=== PATIENT | male | born 1950 | race Caucasian/White ===

== ENCOUNTER → 2019-05-23 08:40 | Outpatient (CLI) | payer MEDICARE, BC, SELFPAY ==
--- NOTE | 2019-05-23 08:49 | XR_ITS ---
XR shoulder RT min 2V COMPARISON: None HISTORY: Right shoulder pain TECHNIQUE: 3 views right shoulder FINDINGS: The clavicle is intact and the AC joint appears normal. The humeral head and glenoid appear normal. There is a small subchondral cysts humeral head near the greater tuberosity. There are no soft tissue calcifications. IMPRESSION: Essentially unremarkable right shoulder
== END ==
PROVIDERS: PCP Family Medicine; Visit Provider Family Medicine
DX: M75.101 Unspecified rotator cuff tear or rupture of right shoulder, not specified as traumatic (principal)
CPT/HCPCS: 73030

== ENCOUNTER → 2019-06-03 16:40 | Outpatient (CLI) | payer MEDICARE, BC, SELFPAY ==
--- NOTE | 2019-06-03 16:43 | MR_ITS ---
MR shoulder RT wo con CLINICAL INDICATION: Right shoulder pain with limited range of motion ITS.REASON: ROTATOR CUFF SYNDROME OF RIGHT SHOULDER ORDERING PHYSICIAN: Umer Evans MD PATIENT AGE: 69 years Comparison: 05/23/2019 FINDINGS: There are hypertrophic changes of the acromioclavicular joint with fluid in the AC joint and a small amount fluid in. To the AC joint. There is full-thickness tear involving the mid and anterior aspect of the supraspinatus tendon. There are some intact fibers of the posterior aspect of the supraspinatus along the superior margin. There is some mild retraction of the musculotendinous fibers anteriorly. The infraspinatus tendon, subscapularis, and teres minor tendons are intact. Fluid is present within the shoulder joint was some localized accumulation posteriorly. The bicipital tendon is in place. Subarticular cystic changes are present involving the inferior aspect of the glenoid. No obvious labral tear. Subchondral cystic changes are present involving the humeral head at the greater tuberosity. There are osteoarthritic changes of the glenohumeral joint IMPRESSION: 1. Full-thickness tear involves the mid and anterior aspect of the supraspinatus tendon with mild retraction of the musculotendinous fibers. Partial tear involves the inferior and posterior aspect of the supraspinatus tendon with some intact fibers superiorly. 2. Acromioclavicular arthropathy with shoulder joint effusion and subarticular cystic changes of the inferior aspect of the glenoid and greater tuberosity with associated osteoarthritis.
== END ==
PROVIDERS: PCP Family Medicine; Visit Provider Family Medicine
DX: M75.101 Unspecified rotator cuff tear or rupture of right shoulder, not specified as traumatic (principal)
CPT/HCPCS: 73221

== ENCOUNTER 2022-11-21 13:00 | Outpatient (RCR) | payer MEDICARE, BC, SELFPAY ==
--- NOTE | 2022-11-06 09:44 | HMH.PTOPEV ---
PT Outpatient Evaluation Rehab PT Outpatient Evaluation Start: 11/06/22 09:32 Freq: Status: Active Protocol: Document 11/06/22 09:32 SANGEETHA (Rec: 11/06/22 09:44 SANGEETHA [id number]) E-signed By Bishnu Trimble, PT Outpatient Therapy Subjective History Subjective History Pt reports aucte exacerbation of left sided lumbar radiculopathy last week. Pt reports very little LBP, however, reports once severe posterior left hip/glut area pain has since improved, but is stil provocative this am. Pt reports some referred pain from left hip down posterior thigh. Chief Complaint Pain,Stiff,Paresthesia Symptom Type Ache,Dull Symptoms Relieved By Rest/Positioning Symptoms Aggravated By Sitting,Physical Activity Prior Functional Limitations None Current Functional Limitations Sitting Symptom Description Constant but Variable Level of pain today (0-10) 2 Pain scale - at its best (0-10) 1 Pain scale - at its worst (0-10) 6 Lumbopelvic Eval Posture Thoracic Spine Posture Standing Position Neutral Lumbar Spine Posture Standing Position Neutral Assistive device Assistive Devices None / NA Gait Observation General Gait Pattern Observation No Deviations/Normal Palapation tenderness left lumbar spinal tenderness Yes: 1/4 paraspinal tenderness Yes: 1-2/4 buttock tenderness Yes: 2-3/4 Accessory Movement L-spine Vertebrae Accessory Movements Left P/A [place] that Elicit Symptoms L3 left L4 left Range of Motion Lumbar Spine Active Flexion Range of 0-45 Motion (degrees) Lumbar Spine Active Extension Range of 0-15 Motion (degrees) Left Lumbar Spine Lateral Flexion Active 0-20 Range of Motion (degrees) Right Lumbar Spine Lateral Flexion 0-20 Active Range of Motion (degrees) Manual Muscle Test Left Knee Extension Strength Grade 5 Normal Knee Flexion Strength Grade 5 Normal Hip Flexion Strength Grade 4- Good- Hip External Rotation Strength Grade 4 Good Hip Internal Rotation Strength Grade 4- Good- Special Tests Hip Piriformis Test Negative Right,Positive Left Sciatic Nerve Tension Test Negative Right,Positive Left Reverse Sciatic Nerve Tension Test Negative Left,Negative Right Lumbar Long [place] Distraction Test/Manual Negative Traction Outpatient Therapy Assessment Impairments Problems/Impairmments Palpation Tenderness,Impaired
== END 2022-11-21 13:05 | disposition home or self-care (01) ==
LOC: PT 13:00
PROVIDERS: PCP Family Medicine; Visit Provider Family Medicine
DX: M54.32 Sciatica, left side (principal)
CPT/HCPCS: 97010; 97014; 97035; 97110; 97163; G0283

== ENCOUNTER → 2023-03-12 12:22 | Outpatient (CLI) | payer MEDICARE, BC, SELFPAY ==
[2023-03-12 13:41] LABS: Basophils % 0.4 % (0.1-2.0); Eosinophils # 0.1 K/mm3 (0.0-0.4); Eosinophils % 1.4 % (0.1-12.0); Hematocrit 49.5 % (42.0-52.0); Hemoglobin 16.3 g/dL (14.1-18.0); Lymphocytes # 6.6 K/mm3 (0.7-4.5); Lymphocytes % 93.6 % (10-50); Mean Corpuscular Volume 99.9 fl (80-94); Mean Platelet Volume 8.5 fl (7.4-10.4); Monocytes # 0.3 K/mm3 (0.1-1.0); Monocytes % 4.1 % (1.7-9.3); Platelet Count 203 K/mm3 (142-424); Red Blood Count 4.96 M/mm3 (4.60-6.20); Red Cell Distribution Width 14.2 % (11.5-17.5); White Blood Count 7.1 K/mm3 (4.8-10.8)
[2023-03-12 13:56] LABS: Alanine Aminotransferase 31 U/L (12-78); Albumin Level 4.2 g/dl (3.5-5.0); Albumin/Globulin Ratio 1.4 (1.1-1.8); Alkaline Phosphatase 62 U/L (38-126); Anion Gap 16.7 mEq/L (5-15); Aspartate Amino Transferase 40 U/L (17-59); Bilirubin,Total 0.8 mg/dl (0.2-1.3); Blood Urea Nitrogen 19 mg/dl (9-20); Calcium 8.9 mg/dl (8.4-10.2); Carbon Dioxide 25 mmol/L (22.0-30.0); Chloride 102 mmol/L (98-107); Chol/HDL Ratio 2.8 (1-3.5); Cholesterol 135 mg/dl (140-200); Estimated Glomerular Filt Rate 73 ml/min (>60); GFR (African American) 88 ML/MIN (>60); Globulin 2.9 g/dL (1.3-3.2); Glucose 86 mg/dl (74-100); HDL Cholesterol 49 mg/dl (40-60); Potassium 4.7 mmoL/L (3.5-5.1); Sodium 139 mmol/L (136-145); Total Protein,Serum 7.1 g/dl (6.3-8.2); Triglycerides 74 mg/dl (30-150); Uric Acid 3.5 mg/dl (3.5-8.5); VLDL Cholesterol 15 mg/dL (0-40)
[2023-03-12 13:59] LABS: Creatinine,Urine Random 147 mg/dL (Not Estab.)
[2023-03-12 14:07] LABS: Direct LDL Cholesterol 71.56 mg/dL (100-129)
[2023-03-12 14:19] LABS: Neutrophils % 0.5 % (37.0-80.0)
[2023-03-12 14:20] LABS: MANUAL DIFFERENTIAL MANUAL DIFFERENTIAL (MANUAL DIFF)
[2023-03-12 14:26] LABS: Prostate Specific Ag Screen 3.9 ng/ml (0.0-4.0)
[2023-03-12 14:36] LABS: Eosinophils % 1 % (0-3); Lymphocytes % 35 % (10-50); Monocytes % 6 % (2-9); Neutrophils % 58 % (42-76); Total Cells Counted 100
[2023-03-12 14:42] LABS: Platelet Estimate Normal; RBC Morphology Normal
== END ==
PROVIDERS: PCP Family Medicine; Visit Provider Family Medicine
DX: I25.10 Atherosclerotic heart disease of native coronary artery without angina pectoris (principal); I10 Essential (primary) hypertension; Z12.5 Encounter for screening for malignant neoplasm of prostate
CPT/HCPCS: 36415; 80053; 80061; 82043; 82570; 84550; 85007; 85025; G0103

== ENCOUNTER 2023-06-15 10:30 | Outpatient (RCR) | payer MEDICARE, BC, SELFPAY ==
--- NOTE | 2023-06-07 11:40 | HMH.RHREAS ---
Rehab Reassessment Rehab OP Re-assessment Start: 05/07/23 14:01 Freq: Status: Active Protocol: Document 06/07/23 11:36 PHONIDA (Rec: 06/07/23 11:40 PHORSHELDON [id number]) E-signed By Karthikeyan Kang, PT Rehab Re-assessment Subjective Subjective Pt reports no pain at this time in the L knee. He continues to ambulate well without an AD and no problems. If I go up or down a lot of steps, I get a little pain, but that's the only time. Objective Objective Notes AROM L knee ( in deg ): 0-131 MMT L LE: HIP FLEX 4+/5, HIP ABD 5/5, KNEE FLEX 5/5, KNEE EXT 4+/5 Gait: Minimal antalgic gait during stance phase of L LE without AD. Assessment Progress Assessment Progressing as Expected Assessment Notes Pt has shown exceptional improvement in L KNEE AROM and considerably increased L LE strength. Difficulty with stairs remains midly problematic, but is improving. He contiues to need skilled intervention to return to prior level of function. Patient goals met STG: all LTG: ROM goal Goals Not Met LTG: all except ROM goal Revised Goals none Plan Plan Continue per initial Frequency of Therapy 2 x/wk Duration of therapy 2-3 wks Time and Billing Re-Eval Time 14 Re-Eval Billing Units 1 PHYSICIAN CERTIFICATION: I certify the specified therapy services for Avel Macario are required, authorized, and reviewed every 30 days.
== END 2023-06-15 10:35 | disposition home or self-care (01) ==
LOC: PT 10:30
PROVIDERS: Visit Provider Orthopaedic Surgery
DX: M25.562 Pain in left knee (principal); Z96.652 Presence of left artificial knee joint
CPT/HCPCS: 97014; 97016; 97110; 97112; 97140; 97163; 97164; 97530; G0283

== ENCOUNTER 2024-05-07 13:01 | Outpatient (CLI) | payer MEDICARE, BC, SELFPAY ==
[2024-05-07 13:53] LABS: Alanine Aminotransferase 28 U/L (12-78); Albumin/Globulin Ratio 1.4 (1.1-1.8); Alkaline Phosphatase 51 U/L (38-126); Anion Gap 12.2 mEq/L (5-15); Aspartate Amino Transferase 31 U/L (17-59); Bilirubin,Total 0.8 mg/dl (0.2-1.3); Blood Urea Nitrogen 24 mg/dl (9-20); Calcium 9.3 mg/dl (8.4-10.2); Carbon Dioxide 26 mmol/L (22.0-30.0); Chloride 103 mmol/L (98-107); Chol/HDL Ratio 3.6 (1-3.5); Cholesterol 134 mg/dl (140-200); Estimated Glomerular Filt Rate 59 ml/min (>60); GFR (African American) 71 ML/MIN (>60); Globulin 2.9 g/dL (1.3-3.2); Glucose 98 mg/dl (74-100); HDL Cholesterol 37 mg/dl (40-60); Potassium 4.2 mmoL/L (3.5-5.1); Sodium 137 mmol/L (136-145); Total Protein,Serum 6.9 g/dl (6.3-8.2); Triglycerides 78 mg/dl (30-150); VLDL Cholesterol 16 mg/dL (0-40)
[2024-05-07 14:05] LABS: Direct LDL Cholesterol 72.86 mg/dL (100-129)
[2024-05-07 14:25] LABS: Prostate Specific Ag Screen 2.9 ng/ml (0.0-4.0)
[2024-05-07 14:31] LABS: Microalbumin/Creatinine Ratio 58.4
[2024-05-07 14:37] LABS: Creatinine,Urine Random 96 mg/dL (Not Estab.)
== END 2024-05-07 23:59 | disposition home or self-care (01) ==
LOC: LAB 13:03
PROVIDERS: PCP Family Medicine; Visit Provider Family Medicine
DX: I10 Essential (primary) hypertension (principal); Z12.5 Encounter for screening for malignant neoplasm of prostate; I25.10 Atherosclerotic heart disease of native coronary artery without angina pectoris
CPT/HCPCS: 36415; 80053; 80061; 82043; 82570; G0103

== ENCOUNTER 2024-05-27 15:08 | Outpatient (CLI) | payer MEDICARE, BC, SELFPAY ==
[2024-05-27 15:38] LABS: Basophils % 0.7 % (0.1-2.0); Eosinophils % 0.9 % (0.1-12.0); Hematocrit 48.9 % (42.0-52.0); Hemoglobin 16.2 g/dL (14.1-18.0); Lymphocytes # 4.6 K/mm3 (0.7-4.5); Lymphocytes % 95.7 % (10-50); Mean Corpuscular HGB Conc 33.1 g/dL (31.8-35.4); Mean Corpuscular Hemoglobin 33.1 pg (27.0-31.2); Mean Corpuscular Volume 99.9 fl (80-94); Mean Platelet Volume 7.9 fl (7.4-10.4); Monocytes # 0.1 K/mm3 (0.1-1.0); Monocytes % 2.1 % (1.7-9.3); Platelet Count 195 K/mm3 (142-424); Red Blood Count 4.89 M/mm3 (4.60-6.20); Red Cell Distribution Width 13.5 % (11.5-17.5); White Blood Count 4.8 K/mm3 (4.8-10.8)
[2024-05-27 15:42] LABS: Neutrophils % 0.6 % (37.0-80.0)
[2024-05-27 15:43] LABS: MANUAL DIFFERENTIAL MANUAL DIFFERENTIAL (MANUAL DIFF)
[2024-05-27 15:57] LABS: Lymphocytes % 18 % (10-50); Monocytes % 7 % (2-9); Neutrophils % 75 % (42-76); Platelet Estimate Normal; RBC Morphology Normal; Total Cells Counted 100
[2024-05-27 16:40] LABS: Alanine Aminotransferase 24 U/L (12-78); Albumin Level 3.9 g/dl (3.5-5.0); Alkaline Phosphatase 49 U/L (38-126); Anion Gap 10.3 mEq/L (5-15); Aspartate Amino Transferase 28 U/L (17-59); Bilirubin,Indirect 0.7 mg/dL (0.0-0.9); Bilirubin,Total 0.7 mg/dl (0.2-1.3); Bilirubin,Unconjugated 0.8 mg/dL (0.0-1.1); Blood Urea Nitrogen 18 mg/dl (9-20); Calcium 9.4 mg/dl (8.4-10.2); Carbon Dioxide 26 mmol/L (22.0-30.0); Chloride 106 mmol/L (98-107); Estimated Glomerular Filt Rate 65 ml/min (>60); GFR (African American) 79 ML/MIN (>60); Glucose 97 mg/dl (74-100); Potassium 4.3 mmoL/L (3.5-5.1); Sodium 138 mmol/L (136-145); Total Protein,Serum 6.9 g/dl (6.3-8.2)
[2024-05-27 16:55] LABS: Free T4 (Free Thyroxine) 1.38 ng/dl (0.78-2.19)
[2024-05-27 17:07] LABS: Thyroid Stimulating Hormone 1.77 uIU/mL (0.465-4.68)
== END 2024-05-27 23:59 | disposition home or self-care (01) ==
LOC: LAB 15:10
PROVIDERS: PCP Family Medicine; Visit Provider Internal Medicine
DX: I10 Essential (primary) hypertension (principal); I48.92 Unspecified atrial flutter; R94.31 Abnormal electrocardiogram [ECG] [EKG]; Z86.79 Personal history of other diseases of the circulatory system; I25.10 Atherosclerotic heart disease of native coronary artery without angina pectoris
CPT/HCPCS: 36415; 80048; 80076; 84439; 84443; 85007; 85025; 85027; 93270

== ENCOUNTER 2024-06-03 11:45 | Outpatient (CLI) | payer MEDICARE, BC, SELFPAY ==
--- NOTE | 2024-06-03 11:46 | NM_ITS ---
APPROVED REPORT Exam: Nuclear Stress Test Indication: Palpitations, HTN, High cholesterol, Family history, CAD, CABG Patient Location: Outpatient Stress Tech: Kelley Camarena NM Tech:Moriah Steiner, ARRT, RT (R)(N) Ht: 6 ft 3 in Wt: 218 lbs HR: 93 bpm BP: 132/81 mmHg BSA: 2.28 m2 TID: 0.85 BMI: 27.2 History: Palpitations, HTN, High cholesterol, Family history, CAD, CABG Procedure: Patient exercised on Panfilo protocol 6:30 minutes and sec, resting heart rate 93 bpm, resting blood pressure 132/81 mmHg, with exercise maximum heart rate achived was 170 bpm which is 117 % of the maximum predicted heart rate and blood pressure was 183/94 mmHg. Test was stopped due to SOB. Patient denied any complaint of chest pain. Patient has exercise capacity, achieved 7.0 METs of workload on treadmill, the blood pressure response to exercise was . Cardiac Stress and Resting SPECT Images: Cardiac Stress and Resting SPECT images were obtained using technetium 99m Myoview 32.0 mCi stress and 10.42 mCi at rest. Resting and stress imaging in supine and prone positions demonstrate a large sized, moderate, fixed perfusion defect in the inferior, lateral, and inferolateral LV pacheco. Gated imaging demonstrates normal global LV systolic function. There is mild hypokinesis of the inferior and lateral LV pacheco. LVEF is calculated at 59%. Conclusion: Large sized, moderate, fixed perfusion defect in the inferior, lateral, and inferolateral LV pacheco. No evidence of reversible ischemia. Gated imaging demonstrates normal global LV systolic function. There is mild hypokinesis of the inferior and lateral LV pacheco. LVEF is calculated at 59%. Electronically signed by : Genevieve Méndez MD 06/04/2024 00:12:16
--- NOTE | 2024-06-03 13:28 | CA_ITS ---
APPROVED REPORT EXAM: Comprehensive 2D, Doppler, and color-flow Echocardiogram Digital Art Director: Sophia Moss CRT Ht: 6 ft 3 in Wt: 219lbs BSA: 2.28 BP: 136/90 mmHg Indications: CAD,CABG,AFLUTTER,ABN EKG,HX SVT,HLD 2D Dimensions Left Atrium 3.98 cm M: 3.0 - 4.0 LA Volume 27.30 mL LVOT 2.16 cm (M/F) 1.5-2.5 LA Volume Index 11.97 mL/m2 (M/F) 16-34 M-Mode Dimensions RVDd 3.39 cm (0.9-2.6) LVDd 3.86 cm (3.5-5.7) Ao Diam 4.56 cm (2.0-3.7) LVDs 2.50 cm (3.5-5.7) IVSd 2.36 cm (0.6-1.1) PWd 0.68 cm (0.6-1.1) EF (Teich) 65.30% FS 35.20% EDV (Teich) 64.30 mL TAPSE 1.30 (<1.7) ESV (Teich) 22.30 mL LV Diastology E Decel Time 139 (160-240 msec) E/A Ratio 1.9 MED E' 6.5 (>= 7 cm/sec) MED A' 10.20 cm/s E'/MED E' Ratio 20.98 (<= 14) LAT E' 13.7 (>= 10 cm/sec) LAT A' 8.40 cm/s E/LAT E' Ratio 9.96 (<= 14) Aortic Valve AoV Peak Paco. 92.0 (50-130 cm/s) AO Peak GR. 3.40 mmHg Mitral Valve MV E Max Paco. 136.0 (40-130 cm/s) MV A Velocity 72.0 (40-130 cm/s) E/A Ratio 1.91 MV Decel. Time 139 (160-240 ms) Tricuspid Valve TR P. Velocity 202.00 cm/s RAP Estimate 10.00 mmHg RVSP 26.40 mmHg Left Ventricle The left ventricle is normal size. The left ventricular systolic function is normal. The left ventricular ejection fraction is within the normal range. There is increased LV wall thickness. Proximal septal thickening is noted. There is normal LV segmental wall motion. Diastolic function is indeterminate. LVEF is 60%. Right Ventricle The right ventricle is not well-visualized. Atria The left atrium size is normal. The right atrium is not well-visualized. The interatrial septum is not well-visualized. Aortic Valve The aortic valve opens well. There is no aortic valvular stenosis. No aortic regurgitation is present. Mitral Valve The mitral valve is normal in structure. No evidence of mitral valve stenosis. There is no mitral valve regurgitation noted. Tricuspid Valve The tricuspid valve leaflets are thin and pliable. Trace tricuspid regurgitation. There is insufficient TR jet to estimate RVSP. Pulmonic Valve The pulmonary valve is normal in structure. Trace pulmonic regurgitation. Great Vessels The aortic root is mildly dilated, measuring 4.3 cm in diameter. The IVC is not well-visualized. Pericardium There is no pericardial effusion. Other Information Study Quality: Technically Difficult Conclusion Technically difficult study due to poor acoustic windows. Normal LV systolic function. The RA and RV are not well-visualized. No significant valvular stenosis or regurgitation. Mildly dilated aortic root, measuring 4.3 cm in diameter. Electronically signed by : Genevieve Méndez MD 06/04/2024 00:02:14
--- NOTE | 2024-06-03 13:52 | CA_ITS ---
APPROVED REPORT Exam: Exercise Treadmill Technologist: Kelley Camarena Ht: 6 ft 3 in Wt: 219 lbs BSA: 2.28 m2 HR: 66 bpm BP: 132/81 mmHg Rhythm: Atrial Flutter Indications: CAD, History of CABG, Atrial Flutter, History of SVT Medical History Medications: Aspirin,,,,, Metoprolol,,,,, Fish Oil,,,,, TAMSULOSIN,,,,, Naproxen,,,,, Nitroglycerin,,,,, RoSUVASTATIN,,,,, Co Q10,,,,, Multivitamin,,,,, Lisinopril-HCTZ,,,,, Stress Test Details Test: Panfilo HR Resting HR: 93 bpm Max Heart Rate (APMHR): 145 bpm Max HR Achieved: 170 bpm Target HR (85% APMHR): 123 bpm % of APMHR: 117 Recovery HR: 95 bpm HR response to stress: Normal HR response to stress BP Resting BP: 132.0/81.0 mmHg Max BP: 183.0/94.0 mmHg Recovery BP: 124.0/86.0 mmHg BP response to stress: Normal blood pressure response to stress. ECG Resting ECG: Atrial flutter Stress EC mm horizontal ST depression Recovery ECG: Return to baseline within 3 minutes of recovery Clinical Exercise duration: 06:30 min Highest Stage Achieved: Exercise capacity: 7.0 METs Overall Exercise Capacity for Age: Average Stress ECG Conclusion The patient was able to exercise for a total of 6 minutes, 30 seconds. He achieved a total of 7.0 METS. He has average exercise capacity compared to age and sex matched peers. He has normal HR and BP response to exercise. Symptoms: Dyspnea Arrhythmias/Ectopy: Atrial flutter ST-T Changes: [address] depression. Conclusion: The patient is in atrial flutter at baseline. Abnormal EKG response to exercise due to ST depression. Myoview images reported separately. Test Summary REST . . . . . . . Sitting REST 06:51 0.0 0.0 93 . 132/ 81 . . Stage 1 01:00 10.0 1.7 118 . . . . Stage 1 02:00 10.0 1.7 128 . . . . Stage 1 03:00 10.0 1.7 128 . 140/ 78 . . Stage 2 01:00 12.0 2.5 128 . . . . Stage 2 02:00 12.0 2.5 142 . . . . Stage 2 . . . . . . . Myoview Injected Stage 2 03:00 12.0 2.5 160 . 160/ 84 . . Stage 3 00:30 14.0 3.4 170 . . . Stop exercise at 06:30 RECOVERY 01:00 0.0 0.0 146 . 170/ 88 . . RECOVERY 02:00 0.0 0.0 130 . 170/ 88 . . RECOVERY 03:00 0.0 0.0 93 . 183/ 94 . . RECOVERY 04:00 0.0 0.0 100 . 183/ 94 . . RECOVERY 05:00 0.0 0.0 93 . 183/ 94 . . RECOVERY 06:00 0.0 0.0 88 . 166/ 97 . . RECOVERY 07:00 0.0 0.0 99 . 166/ 97 . . RECOVERY 08:00 0.0 0.0 66 . 166/ 97 . . RECOVERY 09:00 0.0 0.0 97 . 124/ 86 . . Electronically signed by : Genevieve Méndez MD 06/04/2024 00:10:04
== END 2024-06-03 23:59 | disposition home or self-care (01) ==
LOC: RAD 11:46
PROVIDERS: PCP Family Medicine; Visit Provider Internal Medicine
DX: R94.31 Abnormal electrocardiogram [ECG] [EKG] (principal); I48.92 Unspecified atrial flutter; I11.9 Hypertensive heart disease without heart failure; I25.10 Atherosclerotic heart disease of native coronary artery without angina pectoris; Z86.79 Personal history of other diseases of the circulatory system
CPT/HCPCS: 78452; 93017; 93018; 93306; A9502

== ENCOUNTER 2024-06-04 11:15 | Outpatient (CLI) | payer MEDICARE, BC, SELFPAY ==
[2024-06-06 11:22] LABS: Peripheral Smear Review Scanned Result
== END 2024-06-04 23:59 | disposition home or self-care (01) ==
LOC: LAB 11:19
PROVIDERS: PCP Family Medicine; Visit Provider Family Medicine
DX: D72.820 Lymphocytosis (symptomatic) (principal)
CPT/HCPCS: 36415

== ENCOUNTER 2024-07-02 11:29 | Day surgery (SDC) | payer MEDICARE, BC, SELFPAY ==
[2024-06-30 12:34] VITALS: BMI 26.7
--- NOTE | 2024-07-02 | ECG_ITS ---
APPROVED REPORT Exam: Resting ECG HR:64 bpm ECG Measurements Heart Rate 64 AXES TN 241 P 49 QRSd 103 QRS -12 QT 413 T 42 QTc 423 Conclusion SINUS RHYTHM WITH FIRST DEGREE AV BLOCK WITH OCCASIONAL SUPRAVENTRICULAR PREMATURE COMPLEXES INFERIOR MYOCARDIAL INFARCTION , PROBABLY OLD [40+ ms Q WAVE AND/OR ST/T ABNORMALITY IN II/aVF] ABNORMAL ECG INTERPRETATION BASED ON A DEFAULT AGE OF 39 YEARS UNCONFIRMED REPORT Electronically signed by : Umer Kowalski MD 07/02/2024 17:15:14
--- NOTE | 2024-07-02 11:40 | CA_ITS ---
APPROVED REPORT EXAM: Comprehensive 2D, Doppler, and color-flow Echocardiogram Tawer: Prisca OrdazmermanLIZZETTE Ht: 6 ft 3 in Wt: 217lbs BSA: 2.27 BP: 108/79 mmHg Indications: A FLUTTER,CARDIOVERSION,CAD,CABG,HTN,HLD Procedure After obtaining informed consent, patient underwent transesophageal echo in the [facility]. Type of Sedation : MAC Sedation was administered by Santos IvyR.N.AMely Sedation start time: 1:00 PM Case end Time: 1:20 PM Transesophageal probe was inserted and advanced into esophagus without difficulty by Dr. Luis Enrique Méndez. The UNA was performed without complications. Synchronized Cardioversion acheived with 150 Joules after 1 attempt(s). Rhythm following Synchronized Cardioversion: Sinus Bradycardia Throughout the procedure, the blood pressure, pulse oximetry, cardiac rhythm, and rate were monitored. The patient tolerated the procedure without adverse effects. Recovery from conscious sedation was uneventful and vital signs were stable. Left Ventricle The left ventricle is normal size. The left ventricular systolic function is normal. The left ventricular ejection fraction is within the normal range. There is increased LV wall thickness. There is normal LV segmental wall motion. LVEF is 60%. Right Ventricle Right ventricle is moderately dilated. Right ventricle is mildly hypokinetic. Atria The left atrium size is normal. No thrombus is visualized in the left atrium or appendage. The right atrium size is normal. The interatrial septum is aneurysmal. Interatrial septum is intact without evidence of ASD or PFO. Aortic Valve The aortic valve is normal in structure. The aortic valve is trileaflet. There is no aortic valvular stenosis. No aortic regurgitation is present. Mitral Valve The mitral valve is normal in structure. No evidence of mitral valve stenosis. Trace mitral regurgitation. Tricuspid Valve The tricuspid valve leaflets are thin and pliable. Trace tricuspid regurgitation. There is insufficient TR jet to estimate RVSP. Pulmonic Valve The pulmonary valve is normal in structure. Trace pulmonic regurgitation. Great Vessels The aortic root is normal in size. The ascending aorta is normal in size. Pericardium There is no pericardial effusion. Other Information Study Quality: Fair Conclusion Normal LV systolic function. Moderate RV dilation with mild reduction in RV function. Aneurysmal interatrial septum. No evidence of interatrial shunt. No significant valvular stenosis or regurgitation. At baseline, the patient was in atrial flutter. He underwent DCCV with 1 shock of 150 J, after which she converted successfully to sinus bradycardia. Postop, he continued to be in sinus bradycardia. Therefore, his home beta-rosie dose was halved at discharge. He was also discharged on 7-day monitor to evaluate his HR, presence of bradycardia, and recurrence of atrial flutter after discharge. He was discharged from postop in stable condition with no symptoms. Electronically signed by : Genevieve Méndez MD 07/03/2024 11:44:19
[2024-07-02 11:58] VITALS: BP 106/68; PULSE 62; RESP 18; TEMP 36.1; O2SAT 98
--- NOTE | 2024-07-02 11:58 | ECG_ITS ---
APPROVED REPORT Exam: Resting ECG HR:63 bpm ECG Measurements Heart Rate 63 AXES QRSd 104 QRS 73 QT 429 T -12 QTc 437 Conclusion ATRIAL FLUTTER/TACHYCARDIA ABNORMAL QRS-T ANGLE [QRS-T AXIS DIFFERENCE > 60] ABNORMAL ECG UNCONFIRMED REPORT Electronically signed by : Umer Kowalski MD 07/02/2024 17:15:24
[2024-07-02 12:19] LABS: Basophils % 0.7 % (0.1-2.0); Eosinophils # 0.1 K/mm3 (0.0-0.4); Eosinophils % 0.8 % (0.1-12.0); Hematocrit 46.9 % (42.0-52.0); Hemoglobin 15.9 g/dL (14.1-18.0); Lymphocytes # 5.2 K/mm3 (0.7-4.5); Lymphocytes % 94.7 % (10-50); Mean Corpuscular Hemoglobin 34.1 pg (27.0-31.2); Mean Corpuscular Volume 100.3 fl (80-94); Mean Platelet Volume 8.4 fl (7.4-10.4); Monocytes # 0.2 K/mm3 (0.1-1.0); Monocytes % 3.6 % (1.7-9.3); Platelet Count 210 K/mm3 (142-424); Red Blood Count 4.68 M/mm3 (4.60-6.20); Red Cell Distribution Width 13.7 % (11.5-17.5); White Blood Count 5.5 K/mm3 (4.8-10.8)
[2024-07-02 12:20] LABS: Neutrophils % 0.2 % (37.0-80.0)
[2024-07-02 12:21] LABS: MANUAL DIFFERENTIAL MANUAL DIFFERENTIAL (MANUAL DIFF)
[2024-07-02] MEDS: LACTATED RINGERS 1000ML 1,000 ML 50 ML IV (12:21)
[2024-07-02 12:24] LABS: Chloride 109 mmol/L (98-107); Sodium 136 mmol/L (136-145)
[2024-07-02 12:25] LABS: Potassium 4.1 mmoL/L (3.5-5.1)
[2024-07-02 12:27] LABS: Blood Urea Nitrogen 18 mg/dl (9-20); Creatinine Clearance Estimated 73 mL/min (50-200); Estimated Glomerular Filt Rate 59 ml/min (>60); GFR (African American) 71 ML/MIN (>60)
[2024-07-02 12:28] LABS: Anion Gap 9.1 mEq/L (5-15); Calcium 8.7 mg/dl (8.4-10.2); Carbon Dioxide 22 mmol/L (22.0-30.0); Glucose 101 mg/dl (74-100)
[2024-07-02 12:33] LABS: INR 1.13 (0.9-1.1); Prothrombin Time 12.5 seconds (10.1-12.5)
--- NOTE | 2024-07-02 12:43 | P.PNANES_ITS ---
[facility] Disclaimer: The information contained in this section may have been updated after the patient was seen, as this information can be updated by other users. Medical History HLD (hyperlipidemia) Atrial flutter Abnormal ECG Hx of supraventricular tachycardia Surgical History History of hip replacement Hx of CABG History of knee replacement S/P CABG x 5 Family History Other Family history of heart disease Social History Smoking Status: Never smoker alcohol intake: never substance use type: denies use current occupational status: retired and other Travel in the last 8 weeks: None caffeine: No [facility] Anesthesia Checklist Patient Identification Patient Identification: Arm Band Structural Data Admitted From: Home Planned Operative Procedure/s: UNA/Cardioversion Consent for Planned Operative Procedure(s) Verified: Yes Verified Documents: Surgical Consent and History and Physical NPO Status Verified Time NPO: 00:00 Additional verifications Anesthesia Reactions: No Airway Assessment Mallampati Score:: Class II C-Spine Mobility Assessed: Yes TMJ Mobility Assessed: Yes Dentition: Good Dentition Neurological Assessment Level of Consciousness: Awake, Alert and Appropriate Anesthesia Plan Anesthesia Risk discussed: Yes Anesthesia Plan: Verified ASA Class: III Anesthesia Type: MAC
[2024-07-02 12:49] LABS: Lymphocytes % 24 % (10-50); Monocytes % 1 % (2-9); Neutrophils % 75 % (42-76); Platelet Estimate Normal; RBC Morphology Normal; Total Cells Counted 100
[2024-07-02 12:57] VITALS: O2SAT 100
[2024-07-02 13:15] VITALS: BP 82/50; PULSE 58; RESP 16; TEMP 36.4; O2SAT 93
--- NOTE | 2024-07-02 13:19 | ECG_ITS ---
APPROVED REPORT Exam: Resting ECG HR:48 bpm ECG Measurements Heart Rate 48 AXES DE 239 P 33 QRSd 108 QRS -7 QT 460 T 64 QTc 426 Conclusion SINUS BRADYCARDIA WITH SINUS ARRHYTHMIA WITH FIRST DEGREE AV BLOCK ABNORMAL ECG UNCONFIRMED REPORT Electronically signed by : Umer Kowalski MD 07/02/2024 17:15:17
[2024-07-02 13:25] VITALS: BP 94/43; PULSE 51; RESP 16; O2SAT 98
[2024-07-02 13:35] VITALS: BP 103/61; PULSE 61; RESP 16; O2SAT 98
[2024-07-02 13:45] VITALS: BP 110/64; PULSE 56; RESP 16; TEMP 36.6; O2SAT 98
--- NOTE | 2024-07-03 07:59 | P.PNANES_ITS ---
[facility] Disclaimer: The information contained in this section may have been updated after the patient was seen, as this information can be updated by other users. Medical History HLD (hyperlipidemia) Atrial flutter Abnormal ECG Hx of supraventricular tachycardia Surgical History History of hip replacement Hx of CABG History of knee replacement S/P CABG x 5 Family History Other Family history of heart disease Social History Smoking Status: Never smoker alcohol intake: never substance use type: denies use current occupational status: retired and other Travel in the last 8 weeks: None caffeine: No [facility] Anesthesia Checklist Patient Identification Patient Identification: Arm Band Structural Data Admitted From: Home Planned Operative Procedure/s: Excision Right Forearm Lesion Consent for Planned Operative Procedure(s) Verified: Yes Verified Documents: Surgical Consent and History and Physical NPO Status Verified Time NPO: 00:00 Additional verifications Anesthesia Reactions: No Airway Assessment Mallampati Score:: Class II C-Spine Mobility Assessed: Yes TMJ Mobility Assessed: Yes Dentition: Good Dentition Neurological Assessment Level of Consciousness: Awake, Alert and Appropriate Anesthesia Plan Anesthesia Risk discussed: Yes Anesthesia Plan: Verified ASA Class: II Anesthesia Type: General
[2024-07-03 08:00] VITALS: BP 122/70; PULSE 41; RESP 16; TEMP 36.5; O2SAT 96
--- NOTE | 2024-07-03 08:00 | EXP.ANES.I ---
[facility] Anesthesia Record Part I Anesthesia Record I Intake, IV Amount: 800 Hydration: Adequate Estimated blood loss (mL): 5 Urine output (mL): 0 Blood Products used (#): none Blood Pressure: 122/70 SaO2: 96 Pulse Rate: 41 Airway Patency: Patent Respiratory Rate: 16 Temperature: 97.7 F Patient is:: Drowsy and Stable Stable to PACU at:: 07:55
== END 2024-07-02 14:20 | disposition home or self-care (01) ==
PROVIDERS: PCP Family Medicine; Visit Provider Internal Medicine
DX: I48.92 Unspecified atrial flutter (principal); R94.31 Abnormal electrocardiogram [ECG] [EKG]; Z86.79 Personal history of other diseases of the circulatory system; E78.49 Other hyperlipidemia; Z95.1 Presence of aortocoronary bypass graft; I10 Essential (primary) hypertension; I25.10 Atherosclerotic heart disease of native coronary artery without angina pectoris
CPT/HCPCS: 80048; 85007; 85025; 85027; 85610; 92960; 93005; 93270; 93312; 93319; J7120

== ENCOUNTER 2024-11-16 04:45 | Observation (INO) | payer MEDICARE, BC, SELFPAY ==
[2024-11-16] VITALS (11 sets, daily range): BP systolic 96–151; BP diastolic 64–91; PULSE 41–68; RESP 10–20; TEMP 36.6–36.9; O2SAT 94–99; BMI 27.5
--- NOTE | 2024-11-16 04:43 | ECG_ITS ---
APPROVED REPORT Exam: Resting ECG HR:41 bpm ECG Measurements Heart Rate 41 AXES QRSd 104 QRS 60 QT 500 T -1 QTc 437 Conclusion SUPRAVENTRICULAR BRADYCARDIA LOW QRS VOLTAGE IN PRECORDIAL LEADS [QRS DEFLECTION < 1.0 mV IN CHEST LEADS] MINIMAL ST DEPRESSION [0.025+ mV ST DEPRESSION] ABNORMAL QRS-T ANGLE [QRS-T AXIS DIFFERENCE > 60] ABNORMAL ECG UNCONFIRMED REPORT Electronically signed by : BERNIE CHAPA, 11/17/2024 23:05:21
--- NOTE | 2024-11-16 04:53 | XR_ITS ---
PROCEDURE INFORMATION: Exam: XR Chest Exam date and time: 11/16/2024 5:16 AM Age: 74 years old Clinical indication: Pain; Dyspnea; Left-sided; Additional info: Cp, dyspnea TECHNIQUE: Imaging protocol: Radiologic exam of the chest. Views: 1 view. COMPARISON: FINDINGS: Lungs: Right basilar atelectasis. No focal infiltrates identified. Pleural spaces: Unremarkable. No pleural effusion. No pneumothorax. Heart/Mediastinum: Calcified mediastinal lymph nodes. Diaphragm: Elevation of the right hemidiaphragm. Bones/joints: Prior median sternotomy and coronary artery bypass grafting. IMPRESSION: Right diaphragmatic elevation and right-sided atelectasis. No acute process definitely identified.
--- NOTE | 2024-11-16 04:54 | HMH.EDGENADL ---
Discharge Plan Disposition Patient Disposition: Admitted Prescriptions Prescriptions: No Action multivitamin [Daily Multi-Vitamin] Tablet 1 tab PO DAILY tamsulosin 0.4 mg capsule 0.4 mg PO DAILY Patient Comments: TAKE 1 CAPSULE BY MOUTH EVERY DAY lisinopril-hydrochlorothiazide 10-12.5 mg tablet 1 tab PO DAILY Patient Comments: TAKE 1 TABLET BY MOUTH EVERY DAY rosuvastatin 40 mg tablet 40 mg PO HS Patient Comments: TAKE 1 TABLET BY MOUTH EVERY DAY AT BEDTIME Co Q-10 300 mg capsule 300 mg PO DAILY Xarelto 20 mg tablet 20 mg PO DAILY Qty: 90 3RF Rx Instructions: must administer with evening meal metoprolol succinate 50 mg tablet extended release 24 hr 25 mg PO DAILY Referrals Follow up/Referrals: Juan Manuel Cano MD [Primary Care Provider] - See instructions Clinical Impressions Clinical Impression: Symptomatic bradycardia, Atrial flutter, Chest pain Print Language Print Language: Latvian Discharge ED Provider: Wayne Noguera General Adult HPI General Chief complaint: Chest Pain Stated complaint: chest pain Time Seen by Provider: 11/16/24 04:51 Mode of Arrival: Ambulatory Source of Information: Patient Limitations: No Limitations Description of Symptoms (Recalled from ER Triage Doc. by RN): Pt states he has been having chest pain since last evening worse now Also c/o dizziness History of Present Illness HPI narrative: 74-year-old male with history of distant CABG in 2000, more recent history of a flutter in 05/28 status post cardioversion after anticoagulation and UNA in 06/28. He remains intermittently in a flutter and is scheduled for an ablation procedure at the [facility] on 11/19/2024. He presents tonight because he awoke with chest tightness, cold sweats, dizziness. He denies any nausea or vomiting. He took a nitro without change. He reports that he had some chest tightness before he went to bed but the symptoms he woke up with were very new and different from any he has had before. He reports his normal heart rate is between 60 and 70. He reports he is normally/intermittently in a flutter. Related Data Home Medications ?Medication ?Instructions ?Recorded ?Confirmed coenzyme Q10 300 mg capsule (Co 300 mg PO DAILY 05/27/24 08/06/24 Q-10) lisinopril 10 1 tab PO DAILY 05/27/24 08/06/24 mg-hydrochlorothiazide 12.5 mg tablet multivitamin (Daily Multi-Vitamin 1 tab PO DAILY 05/27/24 08/06/24 tablet) rosuvastatin 40 mg tablet 40 mg PO HS 05/27/24 08/06/24 tamsulosin 0.4 mg capsule 0.4 mg PO DAILY 05/27/24 08/06/24 metoprolol succinate 50 mg 25 mg PO DAILY 08/06/24 08/06/24 tablet,extended release 24 hr Previous Rx's ?Medication ?Instructions ?Recorded rivaroxaban 20 mg tablet (Xarelto) 20 mg PO DAILY #90 tabs 05/27/24 Allergies Allergy/AdvReac Type Severity Reaction Status Date / Time KEVIN SHARK Allergy Intermediate I-HIVES Uncoded 08/06/24 13:33 Shark Oil Allergy Intermediate I-HIVES Uncoded 08/06/24 13:33 [facility] Disclaimer: The information contained in this section may have been updated after the patient was seen, as this information can be updated by other users. Medical History HLD (hyperlipidemia) Atrial flutter Abnormal ECG Hx of supraventricular tachycardia Surgical History History of hip replacement Hx of CABG History of knee replacement S/P CABG x 5 Family History Other Family history of heart disease Social History Smoking Status: Never smoker alcohol intake: never substance use type: denies use current occupational status: retired and other Travel in the last 8 weeks: None caffeine: No Have you lived/traveled outside US in past 30 days?: No Contact w/someone who lives/traveled outside US past 30 days?: No Exposure to someone with infectious disease in past 14 days?: No Do you have a fever (greater than 100.4 F or 38 C)?: No Have you tested positive for COVID-19: No Exposed to someone with COVID-19 in past 14 days?: No Do you have a sore throat?: No Do you have a cough?: No Do you have any weakness?: No Do you have any diarrhea?: No Are you experiencing any unusual bleeding?: No Do you have any muscle aches/pain?: No Do you have any abdominal pain?: No Are you experiencing loss of taste or smell?: No Other Medical History Have you received the Pneumonia Vaccine: No ROS Obtained: Yes All systems reviewed & no additional complaints except as documented Physical Exam General General appearance: alert and anxious Head Head exam: atraumatic and normocephalic Eye Eye exam: Present normal appearance, PERRL and EOMI ENT ENT exam: Present normal oropharynx and normal external ear exam Neck Neck exam: Present normal inspection and full ROM Chest Chest inspection: Present normal inspection and symmetric chest wall rise; Absent tenderness Respiratory Respiratory exam: Present normal lung sounds bilaterally; Absent respiratory distress Cardiovascular Cardiovascular exam: Present bradycardia and irregular rhythm Abdominal Exam Abdominal exam: Present soft; Absent distention, tenderness or guarding Extremities Exam Extremities exam: Present normal inspection; Absent edema or joint swelling Back Exam Back exam: Present normal inspection; Absent tenderness Neurological Exam Neurological exam: Present alert and oriented X3; Absent motor sensory deficit Psychiatric Psychiatric exam: Present normal affect and normal mood Skin Skin exam: Present warm, dry and normal color Lymphatic Lymphatic Findings: no adenopathy Medical Decision Making Medical Records Medical records reviewed: Yes I reviewed the patient's medical records. Screening: Per USPSTF and CDC recommendations, given the prevalence of disease in our region, it is our hospital?s policy to screen for HIV and viral Hepatitis for all patients aged 18 and over and those with ongoing risk factors. Manuel Inquiry Pt receiving controlled substance: No Manuel was queried for this patient: No Vital Signs: 11/16/24 04:45 11/16/24 05:15 11/16/24 05:30 Temperature 98.4 F Temperature Source Oral Pulse Rate [Right Brachial] 41 L Respiratory Rate 20 14 13 Blood Pressure 96/69 L 100/64 L Blood Pressure [Right Arm] 130/79 Blood Pressure Mean 78 70 Blood Pressure Mean [Right Arm] 96 Blood Pressure Source [Right Arm] Automatic Cuff 02 Sat by Pulse Oximetry 96 97 96 Oxygen Delivery Method Room Air Nasal Cannula Room Air Room Air Lab Data Lab results reviewed: Yes I reviewed the patient's lab results. Lab Results 11/16/24 04:38: SARS-CoV-2 (PCR) Not detected, Influenza A Untype (PCR) Not detected, Influenza Type B (PCR) Not detected 11/16/24 04:49: WBC 6.9, RBC 4.17 L, Hgb 13.5 L, Hct 40.4 L, MCV 96.9 H, MCH 32.4 H, MCHC 33.4, RDW 14.3, Plt Count 193, MPV 10.0, Neut % (Auto) 48.2, Lymph % (Auto) 38.1, [place] % (Auto) 9.7 H, Eos % (Auto) 2.5, Baso % (Auto) 0.9, Neut # (Auto) 3.3, Lymph # (Auto) 2.6, [place] # (Auto) 0.7, Eos # (Auto) 0.2, Baso # (Auto) 0.1, Sodium 138, Potassium 3.1 L, Chloride 106, Carbon Dioxide 25, Anion Gap 10.1, BUN 29 H, Creatinine 1.30 H, Estimated Creat Clear 69, Estimated GFR 54 L, Est GFR ( Amer) 65, Glucose 89, Calcium 8.8, Magnesium 2.1, Total Bilirubin 0.2, AST 31, ALT 24, Alkaline Phosphatase 49, Troponin I < 0.01, Total Protein 6.4, Albumin 3.6, Globulin 2.8, Albumin/Globulin Ratio 1.3 11/16/24 04:49 11/16/24 04:49 Orders (Tests/Meds): ED MEDICATIONS Discontinued Medications Generic Name Dose Route Start Last Admin Trade Name Freq PRN Reason Stop Dose Admin Aspirin 324 mg 11/16/24 04:52 11/16/24 04:56 Aspirin 81mg Chewable Tablet PO 11/16/24 04:53 324 mg ONCE ONE Administration Potassium Chloride 40 meq 11/16/24 05:32 11/16/24 05:40 Potassium Chloride 20meq Tab PO 11/16/24 05:33 40 meq ONCE ONE Administration ORDERS Category Date Time Status CXR --portable [XR chest portable] Stat Exams 11/16/24 04:53 Completed CBC w/Auto Diff [Complete Blood Count Auto Diff] Stat Lab 11/16/24 04:49 Completed CMP [Comprehensive Metabolic Panel] Stat Lab 11/16/24 04:49 Completed HIV Combo Routine Lab 11/16/24 04:49 Received Hepatitis C Ab Qual. W/ RFX Routine Lab 11/16/24 04:49 Received MAG [Magnesium] Stat Lab 11/16/24 04:49 Completed Rapid PCR Covid and Flu A/B Stat Lab 11/16/24 04:38 Completed Troponin I Q3H Lab 11/16/24 04:49 Completed Troponin I Q3H Lab 11/16/24 08:00 Ordered ECG Data Tracing #1: I reviewed this ECG and interpreted as documented below: Atrial flutter with ventricular rate of 41 with variable block, normal QRS, no obvious ischemic changes. ECG initial impression date: 11/16/24 ECG initial impression time: 04:43 HEART Score History (anamnesis): Highly suspicious ECG: Non-specific disturbance Age: >65 years Risk factors: Atherosclerosis history Troponin: </= normal limit HEART Score: 7 Medical Decision Narrative: 74-year-old male with history of CABG, history of a flutter on Xarelto and metoprolol XR 25 mg, presents for chest tightness, cold sweats, dizziness upon wakening this morning shortly prior to arrival. He had some chest tightness when he went to bed.. History was obtained via interactive discussion with patient, chart review. On arrival, patient is afebrile, normotensive, bradycardic with rate between 30 and 60, and a flow, moving all extremities spontaneously. Full physical exam performed and significant for clear lungs bilaterally, no abdominal tenderness, Differential includes but is not limited to ACS, arrhythmia, electrolyte derangement. Patient was given aspirin 324 for symptomatic management and correction of underlying abnormalities. Workup initiated including CBC CMP mag chest x-ray EKG. EKG shows a flutter with narrow complex bradycardia with ventricular rate of 41. Rate is highly variable on environmental monitoring specialist On re-evaluation, patient remains normotensive and bradycardic. Reports improvement in chest tightness, no dizziness. Laboratory workup independently interpreted by me and significant for minimal hypokalemia at 3.1, repleted orally. Normal mag, initial troponin undetectably low. Imaging independently interpreted by me and significant for right hemidiaphragm elevation, no focal consolidation, no pneumothorax. See radiology read for full review of final results. Interactive discussion was had with our director internal audit Dr. Sanchez who recommended admission for observation, echo and possible cath. The etiology of patient's new symptoms today remain unclear. Interactive discussion was had with hospitalist for admission. Procedures Risk/Benefits of Procedure(s) Were Explained: Yes Critical Care Critical Care Time Critical Care Time: No
--- NOTE | 2024-11-16 04:55 | PC.NURSE ---
Pt in atrial flutter with bradycardic ventricular rate per continuous heart monitor
[2024-11-16] MEDS: ASPIRIN 81MG CHEWABLE TABLET 324 MG PO (04:56)
[2024-11-16 05:01] LABS: Basophils # 0.1 K/mm3 (0-0.2); Basophils % 0.9 % (0.1-2.0); Eosinophils # 0.2 K/mm3 (0.0-0.4); Eosinophils % 2.5 % (0.1-12.0); Hematocrit 40.4 % (42.0-52.0); Hemoglobin 13.5 g/dL (14.1-18.0); Lymphocytes # 2.6 K/mm3 (0.7-4.5); Lymphocytes % 38.1 % (10-50); Mean Corpuscular HGB Conc 33.4 g/dL (31.8-35.4); Mean Corpuscular Hemoglobin 32.4 pg (27.0-31.2); Mean Corpuscular Volume 96.9 fl (80-94); Monocytes # 0.7 K/mm3 (0.1-1.0); Monocytes % 9.7 % (1.7-9.3); Neutrophils # 3.3 K/mm3 (1.8-7.8); Neutrophils % 48.2 % (37.0-80.0); Platelet Count 193 K/mm3 (142-424); Red Blood Count 4.17 M/mm3 (4.60-6.20); Red Cell Distribution Width 14.3 % (11.5-17.5); White Blood Count 6.9 K/mm3 (4.8-10.8)
[2024-11-16 05:03] LABS: Coronavirus 19, PCR Not Detected (NotDetected); Influenza A, PCR Not Detected (NotDetected); Influenza B, PCR Not Detected (NotDetected)
[2024-11-16 05:07] LABS: Alanine Aminotransferase 24 U/L (12-78); Albumin Level 3.6 g/dl (3.5-5.0); Albumin/Globulin Ratio 1.3 (1.1-1.8); Alkaline Phosphatase 49 U/L (38-126); Anion Gap 10.1 mEq/L (5-15); Aspartate Amino Transferase 31 U/L (17-59); Bilirubin,Total 0.2 mg/dl (0.2-1.3); Blood Urea Nitrogen 29 mg/dl (9-20); Calcium 8.8 mg/dl (8.4-10.2); Carbon Dioxide 25 mmol/L (22.0-30.0); Chloride 106 mmol/L (98-107); Creatinine Clearance Estimated 69 mL/min (50-200); Estimated Glomerular Filt Rate 54 ml/min (>60); GFR (African American) 65 ML/MIN (>60); Globulin 2.8 g/dL (1.3-3.2); Glucose 89 mg/dl (74-100); Magnesium 2.1 mg/dl (1.6-2.3); Potassium 3.1 mmoL/L (3.5-5.1); Sodium 138 mmol/L (136-145); Total Protein,Serum 6.4 g/dl (6.3-8.2)
[2024-11-16 05:19] LABS: Troponin I < 0.01 ng/ml (0.00-0.034)
[2024-11-16] MEDS: POTASSIUM CHLORIDE 20MEQ TAB 40 MEQ PO (05:40)
--- NOTE | 2024-11-16 05:57 | PC.NURSE ---
Dr. Sanchez paged for consult in regard for pt
--- NOTE | 2024-11-16 06:10 | PC.NURSE ---
storehouse clerk notified of need for inpatient bed. Pt accepted by hospitalist for admission
[2024-11-16 06:36] LABS: Chol/HDL Ratio 4.1 (1-3.5); Cholesterol 124 mg/dl (140-200); HDL Cholesterol 30 mg/dl (40-60); Triglycerides 86 mg/dl (30-150); VLDL Cholesterol 17 mg/dL (0-40)
[2024-11-16 06:38] LABS: INR 1.35 (0.9-1.1); Prothrombin Time 14.7 seconds (10.1-12.5)
[2024-11-16 06:47] LABS: Direct LDL Cholesterol 70.74 mg/dL (100-129)
[2024-11-16 07:03] LABS: Hepatitis C Ab Qual. W/ RFX NEGATIVE (Negative)
--- NOTE | 2024-11-16 07:23 | PC.NURSE ---
Pt arrived to the floor at this time.
[2024-11-16 07:58] LABS: HIV Combo NEGATIVE (Negative)
--- NOTE | 2024-11-16 08:11 | PC.NURSE ---
pt will be changed to [facility] who is his pcp. spoke with Hospitalist.
[2024-11-16 09:58] LABS: Troponin I < 0.01 ng/ml (0.00-0.034)
--- NOTE | 2024-11-16 10:00 | HMH.PHAINT1 ---
Pharmacy Intervention Comments: MEDICATION RECONCILIATION COMPLETED ON PATIENT USING EXTERNAL FILL HISTORY FROM PHARMACY. -AI TENA, JENNIFERD
--- NOTE | 2024-11-16 10:12 | EXP.HP ---
History of Present Illness *Admission Date: 11/16/24 *Reason for visit:: Chest pain *History of present illness: Mr. Macario is a 74 year old patient of [facility] with a history of CAD and atrial flutter who presented to [facility] ER this morning complaining of chest tightness, dizziness and diaphoresis. He states he had some chest tightness last night prior to going to bed but woke up around 4 am and symptoms were worse. He has HTN, had a CABG in 2000 and has not had any ischemia issues since, and he was recently diagnosed with A. flutter. He has been followed by cardiology at [facility] and referred to electrophysiology and has an ablation scheduled for 11/19/24. He had an echo a few months ago and had a cardiac CT scan 2 days ago. [facility] Disclaimer: The information contained in this section may have been updated after the patient was seen, as this information can be updated by other users. Medical History (Updated 11/16/24 @ 10:24 by Juan Manuel Cano MD) Nephrolithiasis Labyrinthitis BPH (benign prostatic hyperplasia) Osteoarthritis Atrial flutter CAD (coronary artery disease) HLD (hyperlipidemia) Atrial flutter Abnormal ECG Hx of supraventricular tachycardia Surgical History History of hip replacement Hx of CABG History of knee replacement S/P CABG x 5 Family History Family history of heart disease Social History Smoking Status: Never smoker alcohol intake: never substance use type: denies use current occupational status: retired and other Travel in the last 8 weeks: None caffeine: No Have you lived/traveled outside US in past 30 days?: No Contact w/someone who lives/traveled outside US past 30 days?: No Exposure to someone with infectious disease in past 14 days?: No Do you have a fever (greater than 100.4 F or 38 C)?: No Have you tested positive for COVID-19: No Exposed to someone with COVID-19 in past 14 days?: No Do you have a sore throat?: No Do you have a cough?: No Do you have any weakness?: No Do you have any diarrhea?: No Are you experiencing any unusual bleeding?: No Do you have any muscle aches/pain?: No Do you have any abdominal pain?: No Are you experiencing loss of taste or smell?: No Other Medical History Have you received the Flu Vaccine for this season: Yes Have you received the Pneumonia Vaccine: No Review of Systems Constitutional Constitutional: Denies chills and Denies fever(s) ENT Ears, Nose, Mouth, and Throat: Reports dizziness *Cardiovascular Cardiovascular: Reports as per HPI *Respiratory Respiratory: Denies cough *Gastrointestinal Gastrointestinal: Denies abdominal pain and Denies belching *Genitourinary Genitourinary: Denies difficulty urinating *Musculoskeletal Musculoskeletal: Denies arthralgias *Neurologic Neurologic: Reports as per HPI, Reports dizziness and Denies localized weakness Meds Home Medications and Allergies Home Medications ?Medication ?Instructions ?Recorded ?Confirmed ?Type coenzyme Q10 300 mg capsule (Co 300 mg PO DAILY 05/27/24 11/16/24 History Q-10) lisinopril 10 1 tab PO DAILY 05/27/24 11/16/24 History mg-hydrochlorothiazide 12.5 mg tablet multivitamin (Daily Multi-Vitamin 1 tab PO DAILY 05/27/24 11/16/24 History tablet) rosuvastatin 40 mg tablet 40 mg PO HS 05/27/24 11/16/24 History tamsulosin 0.4 mg capsule 0.4 mg PO DAILY 05/27/24 11/16/24 History metoprolol succinate 25 mg 25 mg PO DAILY 11/16/24 11/16/24 History tablet,extended release 24 hr rivaroxaban 20 mg tablet (Xarelto) 20 mg PO QPMWITHMEAL 11/16/24 11/16/24 History New Prescriptions to Start Prescriptions: Allergies Allergy/AdvReac Type Severity Reaction Status Date / Time KEVIN SHARK Allergy Intermediate I-HIVES Uncoded 08/06/24 13:33 Shark Oil Allergy Intermediate I-HIVES Uncoded 08/06/24 13:33 Exam Data for Last 24 hours Vital signs and Labs for Last 24 Hours: Temp Pulse Resp BP Pulse Ox O2 Del Method 97.8 F 59 L 16 133/85 99 Room Air 11/16/24 07:54 11/16/24 07:54 11/16/24 07:54 11/16/24 07:54 11/16/24 07:54 11/16/24 09:00 Laboratory Results - last 24 hr 11/16/24 04:38: SARS-CoV-2 (PCR) Not detected, Influenza A Untype (PCR) Not detected, Influenza Type B (PCR) Not detected 11/16/24 04:49: WBC 6.9, RBC 4.17 L, Hgb 13.5 L, Hct 40.4 L, MCV 96.9 H, MCH 32.4 H, MCHC 33.4, RDW 14.3, Plt Count 193, MPV 10.0, Neut % (Auto) 48.2, Lymph % (Auto) 38.1, [place] % (Auto) 9.7 H, Eos % (Auto) 2.5, Baso % (Auto) 0.9, Neut # (Auto) 3.3, Lymph # (Auto) 2.6, [place] # (Auto) 0.7, Eos # (Auto) 0.2, Baso # (Auto) 0.1, PT 14.7 H, INR 1.35 H, Sodium 138, Potassium 3.1 L, Chloride 106, Carbon Dioxide 25, Anion Gap 10.1, BUN 29 H, Creatinine 1.30 H, Estimated Creat Clear 69, Estimated GFR 54 L, Est GFR ( Amer) 65, Glucose 89, Calcium 8.8, Magnesium 2.1, Total Bilirubin 0.2, AST 31, ALT 24, Alkaline Phosphatase 49, Troponin I < 0.01, Total Protein 6.4, Albumin 3.6, Globulin 2.8, Albumin/Globulin Ratio 1.3, Triglycerides 86, Cholesterol 124 L, LDL Cholesterol Direct 70.74 L, VLDL Cholesterol 17, HDL Cholesterol 30 L, Cholesterol/HDL Ratio 4.1 H, HCV Ab RISSA w/Rflx PCR Qn Negative, HIV Ag/Ab Combo Qual Negative 11/16/24 09:10: Troponin I < 0.01 I & O for Last 24 hours: Intake & Output 11/13/24 11/14/24 11/15/24 11/16/24 23:59 23:59 23:59 23:59 Output Total 0 / 0 Balance 0 / 0 Weight 220 lb Constitutional Constitutional: no acute distress *Routine HEENT Exam Head: Present normocephalic Eye: Present EOMI and PERRL ENT: Present mucous membranes moist *Routine Neck Exam Neck: Present supple; Absent lymphadenopathy *Routine Respiratory Exam Respiratory: Present CTA bilaterally *Routine Cardiovascular Exam Cardiovascular: Present RRR and bradycardia (HR 55 now) *Routine Abdominal Exam Abdominal: Present soft and normoactive bowel sounds; Absent tenderness *Routine Rectal Exam Rectal:: deferred *Routine Genitalia Exam Genitalia:: deferred *Routine Extremities Exam Extremities: Absent cyanosis, clubbing or edema *Routine Skin Exam Skin: Present warm; Absent rash *Routine Neurological Exam Neurological: Present alert and oriented X3 Assessment and Plan *Assessment and plan (1) Chest pain: Status: Acute Category: Medical Code(s): R07.9 - Chest pain, unspecified (2) Atrial flutter: Status: Acute Category: Medical Code(s): I48.92 - Unspecified atrial flutter (3) Symptomatic bradycardia: Status: Acute Category: Medical Code(s): R00.1 - Bradycardia, unspecified (4) Hypokalemia: Status: Acute Category: Medical Code(s): E87.6 - Hypokalemia (5) Hypertension: Status: Acute Qualifiers: Hypertension type: primary hypertension Qualified Code(s): I10 - Essential (primary) hypertension Category: Medical Code(s): I10 - Essential (primary) hypertension (6) CAD (coronary artery disease): Status: Acute Qualifiers: Coronary Disease-Associated Artery/Lesion type: bypass graft Category: Medical Code(s): I25.10 - Atherosclerotic heart disease of [place] coronary artery without angina pectoris (7) Hx of CABG: Status: Acute Category: Surgical Code(s): Z95.1 - Presence of aortocoronary bypass graft (8) HLD (hyperlipidemia): Status: Acute Qualifiers: Hyperlipidemia type: other hyperlipidemia Qualified Code(s): E78.49 - Other hyperlipidemia Category: Medical Code(s): E78.5 - Hyperlipidemia, unspecified Plan Patient admitted for further evaluation and management of his symptomatic bradycardia. He has actually been taking 50 mg of Metoprolol daily. Plan to hold it now. Potassium has been replaced. Will recheck labs tomorrow. Doubt he needs an Echo during this admission. Check serial cardiac enzymes.
--- NOTE | 2024-11-16 15:00 | PC.NURSE ---
Received report from Gary Purcell RN
[2024-11-16] MEDS: RIVAROXABAN 10MG TABLET 20 MG PO (17:18)
[2024-11-16] MEDS: POTASSIUM CHLORIDE 20MEQ TAB 20 MEQ PO (20:00)
[2024-11-16] MEDS: ATORVASTATIN 40MG TABLET 40 MG PO (20:00)
[2024-11-16] MEDS: MELATONIN 5MG TABLET 5 MG PO (22:46)
[2024-11-17] VITALS: BP 121/65; PULSE 60; PULSE 65; RESP 16; TEMP 36.6; O2SAT 97
[2024-11-17 04:00] VITALS: BP 101/64; PULSE 61; PULSE 80; RESP 14; TEMP 36.7; O2SAT 98; BMI 27.6
--- NOTE | 2024-11-17 06:24 | PC.NURSE ---
Pt. was admitted yesterday for symptomatic Bradycardia. Pt. alert and orientated x 4. Denies chest pain/tightness, dizziness overnight. Pt. in A-Flutter. rhythm. He states that he is scheduled for a cardiac ablation on Sun. at . Pt. states that he is feeling fine. No bradycardia overnight. Pt. slept well . Heart rates in the 50's-60's. Vss. Personal items and call cain in reach.
[2024-11-17 07:13] LABS: Basophils % 0.6 % (0.1-2.0); Eosinophils # 0.1 K/mm3 (0.0-0.4); Hemoglobin 13.6 g/dL (14.1-18.0); Lymphocytes # 1.2 K/mm3 (0.7-4.5); Lymphocytes % 21.7 % (10-50); Mean Corpuscular HGB Conc 33.2 g/dL (31.8-35.4); Mean Corpuscular Hemoglobin 31.7 pg (27.0-31.2); Mean Corpuscular Volume 95.6 fl (80-94); Monocytes # 0.5 K/mm3 (0.1-1.0); Monocytes % 8.6 % (1.7-9.3); Neutrophils # 3.6 K/mm3 (1.8-7.8); Neutrophils % 66.7 % (37.0-80.0); Platelet Count 177 K/mm3 (142-424); Red Blood Count 4.29 M/mm3 (4.60-6.20); Red Cell Distribution Width 14.4 % (11.5-17.5); White Blood Count 5.4 K/mm3 (4.8-10.8)
[2024-11-17 07:27] VITALS: BP 103/50; PULSE 68; RESP 18; TEMP 36.4; O2SAT 99
[2024-11-17 07:32] LABS: Anion Gap 9.2 mEq/L (5-15); Blood Urea Nitrogen 18 mg/dl (9-20); Calcium 8.3 mg/dl (8.4-10.2); Carbon Dioxide 22 mmol/L (22.0-30.0); Chloride 110 mmol/L (98-107); Creatinine Clearance Estimated 76 mL/min (50-200); Estimated Glomerular Filt Rate 59 ml/min (>60); GFR (African American) 71 ML/MIN (>60); Glucose 84 mg/dl (74-100); Magnesium 1.9 mg/dl (1.6-2.3); Potassium 4.2 mmoL/L (3.5-5.1); Sodium 137 mmol/L (136-145)
[2024-11-17 08:00] VITALS: PULSE 60
--- NOTE | 2024-11-17 08:15 | P.PN_ITS ---
Subjective *Date: 11/17/24 *Time: 08:15 Interval history: Patient feels well this morning, anxious to go home. Medical Exam Vital signs and Labs for Last 24 Hours: Vital Signs Temp Pulse Pulse Resp BP Pulse Ox O2 Del Method 11/17/24 08:07 Room Air 11/17/24 07:27 97.5 F L 68 18 103/50 L 99 Room Air 11/17/24 07:00 Room Air 11/17/24 05:00 Room Air 11/17/24 04:00 80 11/17/24 04:00 98.0 F 61 14 101/64 L 98 Room Air 11/17/24 03:00 Room Air 11/17/24 01:00 Room Air 11/17/24 00:00 60 11/17/24 00:00 97.9 F 65 16 121/65 97 Room Air 11/16/24 23:00 Room Air 11/16/24 21:00 Room Air 11/16/24 20:00 Room Air 11/16/24 20:00 60 11/16/24 20:00 98.2 F 68 16 122/70 98 Room Air 11/16/24 18:38 Room Air 11/16/24 17:00 Room Air 11/16/24 16:00 60 11/16/24 16:00 60 11/16/24 16:00 97.9 F 67 19 123/71 98 Room Air 11/16/24 15:00 Room Air 11/16/24 13:00 Room Air 11/16/24 12:00 45 L 11/16/24 12:00 98.3 F 11/16/24 11:00 Room Air 11/16/24 10:00 98 F 60 18 151/91 H 99 Room Air 11/16/24 09:00 Room Air Intake and Output 11/16/24 11/17/24 11/17/24 23:59 07:59 15:59 Intake Total 240 / 720 Output Total 0 / 0 0 / 0 Balance 240 / 720 0 / 0 Intake: Intake, Oral Amount 240 / 720 Output: Output, Urine Amount 0 / 0 0 / 0 Other: Number of Unmeasured Voids 1 1 Number of Bowel Movements 1 Weight 222 lb 11.2 oz Patient Weight 11/17/24 23:59 Weight 222 lb 11.2 oz Laboratory Results - last 24 hr 11/16/24 09:10: Troponin I < 0.01 11/17/24 06:36: WBC 5.4, RBC 4.29 L, Hgb 13.6 L, Hct 41.0 L, MCV 95.6 H, MCH 31.7 H, MCHC 33.2, RDW 14.4, Plt Count 177, MPV 10.0, Neut % (Auto) 66.7, Lymph % (Auto) 21.7, [place] % (Auto) 8.6, Eos % (Auto) 2.0, Baso % (Auto) 0.6, Neut # (Auto) 3.6, Lymph # (Auto) 1.2, [place] # (Auto) 0.5, Eos # (Auto) 0.1, Baso # (Auto) 0.0, Sodium 137, Potassium 4.2 D, Chloride 110 H, Carbon Dioxide 22, Anion Gap 9.2, BUN 18 D, Creatinine 1.20, Estimated Creat Clear 76, Estimated GFR 59, Est GFR ( Amer) 71, Glucose 84, Calcium 8.3 L, Magnesium 1.9 I & O for Labs for Last 24 Hours: Intake & Output 11/14/24 11/15/24 11/16/24 11/17/24 23:59 23:59 23:59 23:59 Intake Total 720 / 720 Output Total 0 / 0 0 / 0 Balance 720 / 720 0 / 0 Weight 220 lb 222 lb 11.2 oz Constitutional: Present no acute distress Comment:: HR has mainly been between 55 and 65 overnight. Respiratory: Present normal respiratory effort Cardiac: Present Reg Rate and Rhythm GI: Present normal bowel sounds; Absent tenderness Extremities: Present normal inspection and full ROM Skin: Present intact; Absent erythema Neuro: Present Grossly Intact and moves all extremities Assessment and Plan *Assessment and plan (1) Chest pain: Status: Acute Category: Medical Code(s): R07.9 - Chest pain, unspecified (2) Atrial flutter: Status: Acute Category: Medical Code(s): I48.92 - Unspecified atrial flutter (3) Symptomatic bradycardia: Status: Acute Category: Medical Code(s): R00.1 - Bradycardia, unspecified (4) Hypokalemia: Status: Acute Category: Medical Code(s): E87.6 - Hypokalemia (5) Hypertension: Status: Acute Qualifiers: Hypertension type: primary hypertension Qualified Code(s): I10 - Essential (primary) hypertension Category: Medical Code(s): I10 - Essential (primary) hypertension (6) CAD (coronary artery disease): Status: Acute Qualifiers: Coronary Disease-Associated Artery/Lesion type: bypass graft Category: Medical Code(s): I25.10 - Atherosclerotic heart disease of [place] coronary artery without angina pectoris (7) Hx of CABG: Status: Acute Category: Surgical Code(s): Z95.1 - Presence of aortocoronary bypass graft (8) HLD (hyperlipidemia): Status: Acute Qualifiers: Hyperlipidemia type: other hyperlipidemia Qualified Code(s): E78.49 - Other hyperlipidemia Category: Medical Code(s): E78.5 - Hyperlipidemia, unspecified Plan Cardiac enzymes normal, potassium normal. OK for discharge home today, keep appt. for cardiac ablation in 2 days, plan office f/u in 2 weeks.
--- NOTE | 2024-11-17 08:24 | HMH.PHAINT1 ---
Pharmacy Intervention Comments: COUNSELED ON NEW MEDICATION WELL DISCONTINUED MEDICATION. PATIENT VERBALIZED UNDERSTANDING.
[2024-11-17] MEDS: TAMSULOSIN 0.4MG CAPSULE 0.4 MG PO (09:07)
[2024-11-17] MEDS: POTASSIUM CHLORIDE 20MEQ TAB 20 MEQ PO (09:08)
--- NOTE | 2024-11-17 14:31 | EXP.DC.SUM ---
General Admission date:: 11/16/24 Discharge date: 11/17/24 HPI HPI HPI: Mr. Macario is a 74 year old patient of [facility] with a history of CAD and atrial flutter who presented to [facility] ER this morning complaining of chest tightness, dizziness and diaphoresis. He states he had some chest tightness last night prior to going to bed but woke up around 4 am and symptoms were worse. He has HTN, had a CABG in 2000 and has not had any ischemia issues since, and he was recently diagnosed with A. flutter. He has been followed by cardiology at [facility] and referred to electrophysiology and has an ablation scheduled for 11/19/24. He had an echo a few months ago and had a cardiac CT scan 2 days ago. Hospital Course Hospital Course Hospital Course: Patient was admitted with symptomatic bradycardia. He had been taking 50 mg of metoprolol daily. This was placed on hold. Potassium was replaced. The following morning 11/17/2024 patient was feeling fine and wanting to go home. He had no further chest discomfort or shortness of breath. Heart rate was in the 50s. Monitor showing atrial flutter. Cardiac enzymes were normal. Potassium was normal. Thus he was discharged home. He was to keep appointment for cardiac ablation in 2 days. Plan for follow-up with Dr. Cano in the office of [facility] in 2 weeks. Exam Data for Last 24 hours Vital signs and Labs for Last 24 Hours: Temp Pulse Resp BP Pulse Ox O2 Del Method 97.5 F L 60 18 103/50 L 99 Room Air 11/17/24 07:27 11/17/24 08:00 11/17/24 07:27 11/17/24 07:27 11/17/24 07:27 11/17/24 08:07 Laboratory Results - last 24 hr 11/17/24 06:36: WBC 5.4, RBC 4.29 L, Hgb 13.6 L, Hct 41.0 L, MCV 95.6 H, MCH 31.7 H, MCHC 33.2, RDW 14.4, Plt Count 177, MPV 10.0, Neut % (Auto) 66.7, Lymph % (Auto) 21.7, [place] % (Auto) 8.6, Eos % (Auto) 2.0, Baso % (Auto) 0.6, Neut # (Auto) 3.6, Lymph # (Auto) 1.2, [place] # (Auto) 0.5, Eos # (Auto) 0.1, Baso # (Auto) 0.0, Sodium 137, Potassium 4.2 D, Chloride 110 H, Carbon Dioxide 22, Anion Gap 9.2, BUN 18 D, Creatinine 1.20, Estimated Creat Clear 76, Estimated GFR 59, Est GFR ( Amer) 71, Glucose 84, Calcium 8.3 L, Magnesium 1.9 I & O for Last 24 hours: Intake & Output 11/15/24 11/16/24 11/17/24 11/18/24 11:59 11:59 11:59 11:59 Intake Total 1060 / 1060 Output Total 0 / 0 0 / 0 Balance 0 / 0 1060 / 1060 Weight 220 lb 222 lb 11.2 oz Narrative: Constitutional: Present no acute distress Comment:: HR has mainly been between 55 and 65 overnight. Respiratory: Present normal respiratory effort Cardiac: Present Reg Rate and Rhythm GI: Present normal bowel sounds; Absent tenderness Extremities: Present normal inspection and full ROM Skin: Present intact; Absent erythema Neuro: Present Grossly Intact and moves all extremities Results Data Completed and Pending Labs on day of discharge: Labs from last 24 hours 11/17/24 06:36 WBC 5.4 RBC 4.29 L Hgb 13.6 L Hct 41.0 L MCV 95.6 H MCH 31.7 H MCHC 33.2 RDW 14.4 Plt Count 177 MPV 10.0 Neut % (Auto) 66.7 Lymph % (Auto) 21.7 [place] % (Auto) 8.6 Eos % (Auto) 2.0 Baso % (Auto) 0.6 Neut # (Auto) 3.6 Lymph # (Auto) 1.2 [place] # (Auto) 0.5 Eos # (Auto) 0.1 Baso # (Auto) 0.0 Sodium 137 Potassium 4.2 D Chloride 110 H Carbon Dioxide 22 Anion Gap 9.2 BUN 18 D Creatinine 1.20 Estimated Creat Clear 76 Estimated GFR 59 Est GFR ( Amer) 71 Glucose 84 Calcium 8.3 L Magnesium 1.9 DS: Diagnosis Discharge Diagnosis (1) Chest pain: Status: Acute Code(s): R07.9 - Chest pain, unspecified (2) Atrial flutter: Status: Acute Code(s): I48.92 - Unspecified atrial flutter (3) Symptomatic bradycardia: Status: Acute Code(s): R00.1 - Bradycardia, unspecified (4) Hypokalemia: Status: Acute Code(s): E87.6 - Hypokalemia (5) Hypertension: Status: Acute Code(s): I10 - Essential (primary) hypertension Qualifiers: Hypertension type: primary hypertension Qualified Code(s): I10 - Essential (primary) hypertension (6) CAD (coronary artery disease): Status: Acute Code(s): I25.10 - Atherosclerotic heart disease of [place] coronary artery without angina pectoris Qualifiers: Coronary Disease-Associated Artery/Lesion type: bypass graft (7) Hx of CABG: Status: Acute Code(s): Z95.1 - Presence of aortocoronary bypass graft (8) HLD (hyperlipidemia): Status: Acute Code(s): E78.5 - Hyperlipidemia, unspecified Qualifiers: Hyperlipidemia type: other hyperlipidemia Qualified Code(s): E78.49 - Other hyperlipidemia Meds Home Medications and Allergies Home Medications ?Medication ?Instructions ?Recorded ?Confirmed ?Type coenzyme Q10 300 mg capsule (Co 300 mg PO DAILY 05/27/24 11/16/24 History Q-10) lisinopril 10 1 tab PO DAILY 05/27/24 11/16/24 History mg-hydrochlorothiazide 12.5 mg tablet multivitamin (Daily Multi-Vitamin 1 tab PO DAILY 05/27/24 11/16/24 History tablet) rosuvastatin 40 mg tablet 40 mg PO HS 05/27/24 11/16/24 History tamsulosin 0.4 mg capsule 0.4 mg PO DAILY 05/27/24 11/16/24 History rivaroxaban 20 mg tablet (Xarelto) 20 mg PO QPMWITHMEAL 11/16/24 11/16/24 History potassium chloride 10 mEq 10 meq PO DAILY #30 caps 11/17/24 Rx capsule,extended release New Prescriptions to Start Prescriptions: potassium chloride [place],Juan Manuel Allergies Allergy/AdvReac Type Severity Reaction Status Date / Time KEVIN SHARK Allergy Intermediate I-HIVES Uncoded 08/06/24 13:33 Shark Oil Allergy Intermediate I-HIVES Uncoded 08/06/24 13:33 Discharge Plan Disposition Patient Disposition: Home, Self-Care Condition: Fair Follow up Plan Follow up with: Juan Manuel Cano MD [Primary Care Provider] - 12/01/24 11:00 am Prescriptions/Medication Reconciliation: New potassium chloride 10 mEq capsule, extended release 10 meq PO DAILY Qty: 30 0RF Continued multivitamin [Daily Multi-Vitamin] Tablet 1 tab PO DAILY tamsulosin 0.4 mg capsule 0.4 mg PO DAILY Patient Comments: TAKE 1 CAPSULE BY MOUTH EVERY DAY lisinopril-hydrochlorothiazide 10-12.5 mg tablet 1 tab PO DAILY Patient Comments: TAKE 1 TABLET BY MOUTH EVERY DAY rosuvastatin 40 mg tablet 40 mg PO HS Patient Comments: TAKE 1 TABLET BY MOUTH EVERY DAY AT BEDTIME Co Q-10 300 mg capsule 300 mg PO DAILY Xarelto 20 mg tablet 20 mg PO QPMWITHMEAL Rx Instructions: must administer with evening meal Discontinued metoprolol succinate 25 mg tablet extended release 24 hr 25 mg PO DAILY Patient Comments: TAKE 1 TABLET BY MOUTH DAILY Problem Reconciliation Problems Reviewed?: Yes Patient Discharge Instructions ACTIVITY: Limited activity DIET: continue same diet Patient Instructions: DI for Bradycardia Print Language: Mohawk Providers Primary Care Provider: Juan Manuel Cano Admit Provider: Juan Manuel Cano Attending Provider: Juan Manuel Cano
--- NOTE | 2024-11-18 09:56 | SW/DCPLANNER ---
Spoke with patient on the phone. Patient stated that he is doing very well. Patient stated that he is aware of his upcoming appointment and that he was able to picker tender his medicine at [facility]. Patient stated that he doesnt have any concerns or questions at this time. Lilly Belcher
== END 2024-11-17 09:49 | disposition home or self-care (01) ==
LOC: ER 06:09 → 2ND 06:50
PROVIDERS: Nurse Practitioner Family; Admitting Provider Family Medicine; Emergency Provider Emergency Medicine; PCP Family Medicine; Visit Provider Family Medicine
DX: R00.1 Bradycardia, unspecified (principal); I48.92 Unspecified atrial flutter; I25.10 Atherosclerotic heart disease of native coronary artery without angina pectoris; I10 Essential (primary) hypertension; Z95.1 Presence of aortocoronary bypass graft; Z79.899 Other long term (current) drug therapy; Z79.01 Long term (current) use of anticoagulants
CPT/HCPCS: 36415; 71045; 80048; 80053; 80061; 83735; 84484; 85025; 85610; 86803; 87389; 87636; 93005; 99285; G0378

== ENCOUNTER 2025-01-31 09:53 | Inpatient (IN) | payer MEDICARE, BC, SELFPAY ==
[2025-01-31] VITALS (26 sets, daily range): BP systolic 81–138; BP diastolic 46–80; PULSE 45–67; RESP 10–25; TEMP 36.6–37; O2SAT 89–98; BMI 27.2; BMI 27.8
--- NOTE | 2025-01-31 09:56 | ECG_ITS ---
APPROVED REPORT Exam: Resting ECG HR:53 bpm ECG Measurements Heart Rate 53 AXES RI 186 P 3 QRSd 109 QRS 15 QT 434 T 128 QTc 416 Conclusion Acute lateral/inferior ischemia ST elevation [address] depressions and T wave inversions V2 and V3 as well as 1 and aVL Electronically signed by : SUZIE FULLER, 01/31/2025 12:30:41
--- NOTE | 2025-01-31 09:57 | XR_ITS ---
PROCEDURE INFORMATION: Exam: XR Chest Exam date and time: 01/31/2025 10:09 AM Age: 74 years old Clinical indication: Other: Chest pain; Additional info: Cp TECHNIQUE: Imaging protocol: Radiologic exam of the chest. Views: 1 view. Total images: 2 COMPARISON: CR XR CHEST PORTABLE 11/16/2024 5:16 AM FINDINGS: Tubes, catheters and devices: fur dressing supervisor overlies the heart on the left. Lungs: No focal pneumonia. Pleural spaces: Unremarkable. No pleural effusion. No pneumothorax. Heart/Mediastinum: Heart demonstrates mild diffuse enlargement. Diaphragm: There is nonspecific elevation of the right hemidiaphragm. Bones/joints: There is evidence of prior median sternotomy. IMPRESSION: 1. Mild cardiomegaly. 2. No focal pneumonia.
[2025-01-31] MEDS: TICAGRELOR 90MG TABLET 180 MG PO (10:01)
[2025-01-31] MEDS: ASPIRIN 81MG CHEWABLE TABLET 324 MG PO (10:01)
--- NOTE | 2025-01-31 10:04 | PC.NURSE ---
stemi called per
--- NOTE | 2025-01-31 10:04 | PC.NURSE ---
pt placed in gown, clipped in needed areas, zoll pads placed
--- NOTE | 2025-01-31 10:07 | HMH.EDCP ---
Discharge Plan Disposition Patient Disposition: Admitted Chief Complaint: Chest Pain Prescriptions Prescriptions: No Action multivitamin [Daily Multi-Vitamin] Tablet 1 tab PO DAILY tamsulosin 0.4 mg capsule 0.4 mg PO DAILY Patient Comments: TAKE 1 CAPSULE BY MOUTH EVERY DAY lisinopril-hydrochlorothiazide 10-12.5 mg tablet 1 tab PO DAILY Patient Comments: TAKE 1 TABLET BY MOUTH EVERY DAY rosuvastatin 40 mg tablet 40 mg PO HS Patient Comments: TAKE 1 TABLET BY MOUTH EVERY DAY AT BEDTIME Co Q-10 300 mg capsule 300 mg PO DAILY metoprolol succinate 25 mg tablet extended release 24 hr PO Patient Comments: TAKE 1 TABLET BY MOUTH DAILY Xarelto 20 mg tablet 20 mg PO QPMWITHMEAL Rx Instructions: must administer with evening meal Referrals Follow up/Referrals: Provider,Referral, MD [Primary Care Provider] - See instructions Clinical Impressions Clinical Impression: ST elevation NH (STEMI) Print Language Print Language: Indonesian Discharge ED Provider: Yassine Sow HPI General Chief Complaint: Chest Pain Stated Complaint: chest pain Time Seen by Provider: 01/31/25 09:55 Mode of Arrival: Ambulatory Source of Information: Patient Description of Symptoms (Recalled from ER Triage Doc. by RN): cp started one hour ago. took a nitro no improvement. ablasion 2.5 months ago. stopped xarelto sunday History of Present Illness HPI narrative: Please note that above description of symptoms, in this electronic medical record under categorization of recalled from ER triage doctor by RN are reflective of an initial nursing assessment, however, is not reflective of my full history and physical exam that was personally taken and clarified. Consequentially, this preceding description of symptoms, which may include the patient's categorized chief complaint in the EMR, do not reflect my personal clinical impression, and the ultimate description of history of present illness and patient stated complaints should be deferred to this section of the note. Unless stated otherwise or congruent with this section of the note, additional signs, symptoms, or incongruence should be interpreted as inaccurate with my clinical impression. Related Data Home Medications ?Medication ?Instructions ?Recorded ?Confirmed coenzyme Q10 300 mg capsule (Co 300 mg PO DAILY 05/27/24 12/17/24 Q-10) lisinopril 10 1 tab PO DAILY 05/27/24 12/17/24 mg-hydrochlorothiazide 12.5 mg tablet multivitamin (Daily Multi-Vitamin 1 tab PO DAILY 05/27/24 12/17/24 tablet) rosuvastatin 40 mg tablet 40 mg PO HS 05/27/24 12/17/24 tamsulosin 0.4 mg capsule 0.4 mg PO DAILY 05/27/24 12/17/24 rivaroxaban 20 mg tablet (Xarelto) 20 mg PO QPMWITHMEAL 11/16/24 12/17/24 metoprolol succinate 25 mg mg PO 12/17/24 12/17/24 tablet,extended release 24 hr Allergies Allergy/AdvReac Type Severity Reaction Status Date / Time KEVIN SHARK Allergy Intermediate I-HIVES Uncoded 12/17/24 13:28 Shark Oil Allergy Intermediate I-HIVES Uncoded 12/17/24 13:28 [facility] Disclaimer: The information contained in this section may have been updated after the patient was seen, as this information can be updated by other users. Medical History Hydroureter, left Left ureteral stone Nephrolithiasis Labyrinthitis BPH (benign prostatic hyperplasia) Osteoarthritis Atrial flutter CAD (coronary artery disease) HLD (hyperlipidemia) Atrial flutter Abnormal ECG Hx of supraventricular tachycardia Surgical History History of hip replacement Hx of CABG History of knee replacement S/P CABG x 5 Family History Other Family history of heart disease Social History Smoking Status: Never smoker alcohol intake: never substance use type: denies use current occupational status: retired and other Travel in the last 8 weeks: None caffeine: No Other Medical History Have you received the Flu Vaccine for this season: No Have you received the Pneumonia Vaccine: No ROS Obtained: Yes All systems reviewed & no additional complaints except as documented Physical Exam General General appearance: alert Neck Neck exam: Present trachea midline Chest Chest inspection: Present normal inspection and symmetric chest wall rise Respiratory Respiratory exam: Present normal lung sounds bilaterally; Absent respiratory distress, wheezes, stridor, accessory muscle use or prolonged expiratory phase Cardiovascular Cardiovascular exam: Present regular rate, normal rhythm and other (Pulses equal and symmetric in upper and lower extremities) Extremities Exam Extremities exam: Absent edema Neurological Exam Neurological exam: Present alert, oriented X3 and CN II-XII intact Skin Skin exam: Present warm and dry; Absent cyanosis, diaphoresis or pallor HEART Score HEART Score HEART Score assessment performed?: No Critical Care Critical Care Time Critical Care Time: Yes (cardiac) Attestation: On 01/31/25, the high probability of a clinically significant, sudden or life threatening deterioration of the following system(s) required my full and direct attention, intervention and personal management. The time I documented below is in addition to time spent performing reported procedures but includes the following listed in this critical care notation. Total Time Total Critical Care Time: 35 Medical Decision Making Medical Records Medical records reviewed: Yes I reviewed the patient's medical records. Manuel Inquiry Pt receiving controlled substance: No Manuel was queried for this patient: No Vital Signs Vital Signs: 01/31/25 09:58 Temperature 98.6 F Temperature Source Oral Pulse Rate [Right] 57 L Respiratory Rate 18 Blood Pressure [Right Arm] 138/80 Blood Pressure Mean [Right Arm] 99 02 Sat by Pulse Oximetry 98 Oxygen Delivery Method Room Air Response Orders (Tests/Meds): ED MEDICATIONS Generic Name Dose Route Start Last Admin Trade Name Freq PRN Reason Stop Dose Admin Heparin Sodium (Porcine) 9,900 unit 01/31/25 10:06 Heparin Sodium 5,000 Unit/Ml Vial 100 unit/kg (9900 unit) 01/31/25 10:07 IV ONCE ONE Discontinued Medications Generic Name Dose Route Start Last Admin Trade Name Freq PRN Reason Stop Dose Admin Aspirin 324 mg 01/31/25 09:56 01/31/25 10:01 Aspirin 81mg Chewable Tablet PO 01/31/25 09:57 324 mg ONCE ONE Administration Ticagrelor 180 mg 01/31/25 09:56 01/31/25 10:01 Ticagrelor 90mg Tablet PO 01/31/25 09:57 180 mg ONCE ONE Administration ORDERS Category Date Time Status XR chest portable Stat Exams 01/31/25 09:57 Ordered Complete Blood Count Auto Diff Stat Lab 01/31/25 10:00 Received Comprehensive Metabolic Panel Stat Lab 01/31/25 10:00 Received Heparin drip PTT [PTT Heparin (inpatient only)] Stat Lab 01/31/25 10:06 Ordered Lipase Stat Lab 01/31/25 10:00 Received Magnesium Stat Lab 01/31/25 10:00 Received NT Pro Brain Natriuretic Pep. Stat Lab 01/31/25 10:00 Received PT INR [Prothrombin Time INR] Stat Lab 01/31/25 10:00 Received PTT [Activated Partial Thrombo Time] Stat Lab 01/31/25 10:00 Received Troponin I Q3H Lab 01/31/25 13:00 Ordered Troponin I Q3H Lab 01/31/25 16:00 Ordered Troponin I Stat Lab 01/31/25 10:00 Received MDM Narrative Medical Decision Narrative: 74-year-old male presenting with chest and back pain. Patient states that he went to bed last night 01/30 and was woke up in the middle of the night with moderate mid back burning that occurred between his shoulder blades. No associated nausea or vomiting. States that he tried to sleep throughout the night, started having substernal chest pain today 01/31 shortly after waking up. Took 2 nitroglycerin, they did not help at all. Came in for further evaluation. No syncope, shortness of breath, nausea, vomiting, diaphoresis, neurologic deficits, or any other concerns. Patient does have a history of CAD status post 5 vessel CABG in the remote past as well as hypertension and hyperlipidemia. Patient also has a history of atrial flutter status post ablation 9 weeks prior to this visit and stopped Xarelto within the week. History was obtained via conversation with patient and family. On arrival, patient hemodynamically stable, alert, oriented x4, appropriate, GCS 15, moving all extremities spontaneously, pupils equal and reactive to light. Full physical exam performed and significant for pale, but otherwise clinically well-appearing male. Lungs are clear, cardiac exam without murmurs gallops or rubs. No lower extremity edema. Pulses equal and symmetric in upper and lower extremities. Neurologically intact. Differential includes microvascular coronary artery disease, CHF, ACS, NH, coronary artery dissection, pneumothorax, PE, dissection, pericarditis, myocarditis, pneumothorax, aortic aneurysm, pneumonia, bronchitis, among others. Patient was given aspirin and Brilinta for symptomatic management and correction of underlying abnormalities. Patient placed on continuous cardiac monitoring and continuous pulse ox with initial blood pressure 138/80, heart rate 57, saturation 98% on room air. Independent interpretation of EKG shows sinus bradycardia. Patient does have what appears to be early ischemic changes in inferior leads with ST depressions and T wave inversions in V1 through V4, also T wave inversions in 1 and aVL. Consistent with inferolateral STEMI. Cardiology was contacted and case was discussed at length, recommended heparin bolus and drip, immediate catheterization lab. These were ordered. Labs also ordered. Prior to return of results, hospitalist was contacted and case was discussed at length, graciously accepted patient for admission. Career Guidance Counselor disclaimer Much of this encounter note is an electronic legislative assistant spoken language to printed text. Electronic legislative assistant of the spoken language may permit errors. Although I have reviewed the note, some errors may still exist.
[2025-01-31 10:10] LABS: Basophils % 0.5 % (0.1-2.0); Eosinophils # 0.1 K/mm3 (0.0-0.4); Eosinophils % 2.1 % (0.1-12.0); Hematocrit 43.5 % (42.0-52.0); Hemoglobin 14.8 g/dL (14.1-18.0); Lymphocytes # 1.7 K/mm3 (0.7-4.5); Lymphocytes % 27.6 % (10-50); Mean Corpuscular Hemoglobin 32.3 pg (27.0-31.2); Mean Platelet Volume 9.9 fl (7.4-10.4); Monocytes # 0.5 K/mm3 (0.1-1.0); Neutrophils # 3.8 K/mm3 (1.8-7.8); Neutrophils % 61.3 % (37.0-80.0); Platelet Count 207 K/mm3 (142-424); Red Blood Count 4.58 M/mm3 (4.60-6.20); Red Cell Distribution Width 13.3 % (11.5-17.5); White Blood Count 6.2 K/mm3 (4.8-10.8)
[2025-01-31 10:13] LABS: Albumin Level 3.9 g/dl (3.5-5.0); Chloride 105 mmol/L (98-107); Potassium 4.1 mmoL/L (3.5-5.1); Sodium 138 mmol/L (136-145)
[2025-01-31] MEDS: HEPARIN SODIUM 5,000 UNIT/ML VIAL 9900 UNIT IV (10:13)
[2025-01-31 10:15] LABS: Blood Urea Nitrogen 24 mg/dl (9-20); Creatinine Clearance Estimated 64 mL/min (50-200); Estimated Glomerular Filt Rate 49 ml/min (>60); GFR (African American) 60 ML/MIN (>60)
[2025-01-31 10:16] LABS: Alanine Aminotransferase 20 U/L (12-78); Albumin/Globulin Ratio 1.2 (1.1-1.8); Alkaline Phosphatase 62 U/L (38-126); Anion Gap 14.1 mEq/L (5-15); Aspartate Amino Transferase 30 U/L (17-59); Bilirubin,Total 0.9 mg/dl (0.2-1.3); Calcium 9.6 mg/dl (8.4-10.2); Carbon Dioxide 23 mmol/L (22.0-30.0); Globulin 3.3 g/dL (1.3-3.2); Glucose 103 mg/dl (74-100); Lipase 171 U/L (23-300); Total Protein,Serum 7.2 g/dl (6.3-8.2)
[2025-01-31 10:17] LABS: Magnesium 1.9 mg/dl (1.6-2.3)
[2025-01-31] MEDS: ONDANSETRON 4MG/2ML VIAL 4 MG IV (10:19)
[2025-01-31] MEDS: MORPHINE 4MG/ML SYRINGE 4 MG IV (10:19)
[2025-01-31 10:26] LABS: NT Pro Brain Natriuretic Pep. 149 pg/mL (0-450)
--- NOTE | 2025-01-31 10:27 | IR_ITS ---
APPROVED REPORT Patient Location: [facility] Tender: GABRIEL Meng RT (R) PROCEDURES Left heart catheterization Left ventriculogram Selective coronary artery angiogram Left internal mammary angiography Selective engagement of saphenous vein graft to the right coronary artery Selective engagement of the saphenous vein graft which supplied the first obtuse marginal artery and then skip to a second obtuse marginal artery Drug-eluting stent deployment to the third obtuse marginal artery via the saphenous vein skip graft INDICATION Acute inferolateral ST elevation myocardial infarction, Coronary artery disease, History of coronary bypass surgery Informed consent was obtained prior to the procedure. COMPLICATIONS NONE Estimated Blood Loss: LESS THAN 10 ML TECHNIQUE One percent lidocaine used to anesthetize the right groin. The right femoral artery was accessed via the Seldinger technique and a 6 Ghanaian sheath was placed in the right femoral artery. A JL 4, JR4 catheter were used to perform left heart catheterization, left ventriculogram selective coronary angiography as well as selective engagement of the 2 vein grafts and the left internal mammary artery. An LCB guide catheter was placed in the saphenous vein graft supplying the obtuse marginal artery. Therapeutic heparin was already administered giving a therapeutic ACT. A guide liner was advanced and a Choice PT extra-support wire was placed in the third obtuse marginal artery through the skip graft. A 2 mm x 22 mm Joni frontier stent was deployed in the proximal to mid third obtuse marginal artery at 18 larisa. An additional 2.25 x 12 mm [place] frontier stent was placed proximal to this and deployed at 20 larisa to further dilate the proximal obtuse marginal artery. PILLO 0 flow was present at the beginning of the procedure with PILLO-3 flow at the end of the procedure. At the end the procedure the apparatus was removed the groin is reprepped closure change sheath was removed and hemostasis was achieved using TR banding patient was transferred to the postop holding in stable condition ANGIOGRAPHIC RESULTS The left main artery Has distal 80% stenosis The left anterior descending artery Is proximally severely diseased with 90% stenoses then giving off 1 small first diagonal artery and then the LAD is occluded The circumflex artery Proximally occluded The right coronary artery Proximally occluded The HAINES ventriculogram reveals Slightly reduced at 45 to 50% The left ventricular end-diastolic pressure 15 mmHg HADDAD to LAD widely patent Saphenous to right coronary patent Saphenous to circumflex artery is a skip graft. The limb to the first obtuse marginal artery is widely patent. The skip graft to the second obtuse marginal artery is widely patent. The third obtuse marginal artery was initially bluntly occluded however after revascularization the third obtuse marginal artery is widely patent accompanied by PILLO-[address] elevation myocardial infarction involving the third obtuse marginal artery Successful stenting of the third obtuse marginal artery via the saphenous vein graft, 100% occlusion reduced to 0% with 2 contiguous drug-eluting stents PLAN 1. Plavix 75 mg daily plus restart either Xarelto or Eliquis for paroxysmal atrial fibrillation and then aspirin 81 mg daily. Continue all 3 blood thinners for the next 30 days and then discontinue aspirin and maintain Plavix and Eliquis or Xarelto 2. LDL less than 55 to achieve that high intensity statin 3. Avoidance of tobacco products 4. Supportive care for at least the next 48 hours with continuous telemetry monitoring 5. Echocardiogram Sunday 6. Standard therapy for ischemic heart disease including ARNEL inhibitor's and/or beta-blockers if tolerated Electronically signed by : Segundo Sanchez MD 01/31/2025 11:36:04
[2025-01-31 10:28] LABS: Troponin I 0.03 ng/ml (0.00-0.034)
--- NOTE | 2025-01-31 10:29 | PC.NURSE ---
spoke with hema rn in photographic laboratory technician to give report on pt. she stated she would let us know when they're ready
[2025-01-31] MEDS: HYDROMORPHONE 2MG/ML SYRINGE 0.5 MG IV (10:30)
[2025-01-31 10:31] LABS: Activated Partial Thrombo Time 28.7 seconds (22.8-30.6); INR 1.02 (0.9-1.1); Prothrombin Time 11.4 seconds (10.1-12.5)
--- NOTE | 2025-01-31 10:41 | PC.NURSE ---
pt transported to [facility] lab[facility] via stretcher with johan malone rn and yolie sawyer rn
[2025-01-31] MEDS: CLOPIDOGREL 300MG TABLET 300 MG PO (11:52)
[2025-01-31] MEDS: LIDOCAINE 1% 10ML MDV 20 ML IJ (11:55)
[2025-01-31] MEDS: FENTANYL 100MCG/2ML VIAL 50 MCG IV (11:56)
[2025-01-31] MEDS: HEPARIN 1,000 UNITS/500ML NS (CATH LAB) 3000 UNIT IV (11:56)
[2025-01-31] MEDS: 0.9 % SODIUM CHLORIDE 500 ML 25 ML IV (11:56)
[2025-01-31] MEDS: diphenhydrAMINE 50MG/ML VIAL 50 MG IV (11:56)
[2025-01-31] MEDS: MIDAZOLAM HCL 1MG/ML 5ML VIAL 1 MG IV (11:57)
--- NOTE | 2025-01-31 12:14 | PC.NURSE ---
arrived by stretcher from microbiological lab technician/ED
[2025-01-31 12:22] LABS: CATHL Activated Clotting Time 285 SEC (74-125)
--- NOTE | 2025-01-31 13:32 | P.HP_ITS ---
History of Present Illness *Admission Date: 01/31/25 *Reason for visit:: Chest pain *History of present illness: Mr. Macario is a 74 year old patient of [facility] with a history of coronary artery disease, s/p 5 vessel CABG in 2000. He presented to [facility] ER this morning complaining of chest pain. He states he felt well when he went to bed last night but woke up with a burning sensation between his shoulder blades that persisted for sometime. He states that the pain then radiated through to the front part of his chest, under his sternum this morning. He took a couple of NTG and his daily dose of Metoprolol and got no relief so he came to the ER for further evaluation. He reports having a cardiac ablation at about 2 months ago for atrial flutter. He had a follow up visit there this past week and his Xarelto was stopped at that visit. He notes that since his ablation procedure he has felt well, his heart rate has stayed around 50. [facility] Disclaimer: The information contained in this section may have been updated after the patient was seen, as this information can be updated by other users. Medical History (Updated 01/31/25 @ 13:45 by Juan Manuel Cano MD) HTN (hypertension) Hydroureter, left Left ureteral stone Nephrolithiasis Labyrinthitis BPH (benign prostatic hyperplasia) Osteoarthritis Atrial flutter CAD (coronary artery disease) HLD (hyperlipidemia) Abnormal ECG Hx of supraventricular tachycardia Surgical History (Updated 01/31/25 @ 13:42 by Juan Manuel Cano MD) History of cardiac radiofrequency ablation History of hip replacement History of knee replacement S/P CABG x 5 Family History Family history of heart disease Social History Smoking Status: Never smoker alcohol intake: current alcohol intake frequency: a few times a month substance use type: denies use current occupational status: retired and other Travel in the last 8 weeks: None household members: significant other marital status: caffeine: No Contact w/someone who lives/traveled outside [place] past 30 days?: No Exposure to someone with infectious disease in past 14 days?: No Do you have a fever (greater than 100.4 F or 38 C)?: No Have you tested positive for COVID-19: No Exposed to someone with COVID-19 in past 14 days?: No Do you have a sore throat?: No Do you have a cough?: No Do you have any weakness?: No Are you experiencing any nausea/vomitting?: No Do you have any diarrhea?: No Are you experiencing any unusual bleeding?: No Do you have any muscle aches/pain?: No Do you have any abdominal pain?: No Are you experiencing loss of taste or smell?: No Other Medical History Have you received the Flu Vaccine for this season: Yes Have you received the Pneumonia Vaccine: No Review of Systems Constitutional Constitutional: Denies chills and Denies fever(s) ENT Ears, Nose, Mouth, and Throat: Denies dizziness *Cardiovascular Cardiovascular: Reports as per HPI *Respiratory Respiratory: Denies cough *Gastrointestinal Gastrointestinal: Denies abdominal pain *Genitourinary Genitourinary: Denies difficulty urinating *Musculoskeletal Musculoskeletal: Denies arthralgias *Neurologic Neurologic: Denies confusion and Denies dizziness Psychiatric Psychiatric: Denies confusion Meds Home Medications and Allergies Home Medications ?Medication ?Instructions ?Recorded ?Confirmed ?Type coenzyme Q10 300 mg capsule (Co 300 mg PO DAILY 05/27/24 01/31/25 History Q-10) lisinopril 10 1 tab PO DAILY 05/27/24 01/31/25 History mg-hydrochlorothiazide 12.5 mg tablet multivitamin (Daily Multi-Vitamin 1 tab PO DAILY 05/27/24 01/31/25 History tablet) rosuvastatin 40 mg tablet 40 mg PO HS 05/27/24 01/31/25 History tamsulosin 0.4 mg capsule 0.4 mg PO DAILY 05/27/24 01/31/25 History metoprolol succinate 25 mg 25 mg PO DAILY 12/17/24 01/31/25 History tablet,extended release 24 hr New Prescriptions to Start Prescriptions: Allergies Allergy/AdvReac Type Severity Reaction Status Date / Time shark liver oil Allergy Severe Hives Verified 01/31/25 13:53 KEVIN SHARK Allergy Intermediate I-HIVES Uncoded 12/17/24 13:28 Exam Data for Last 24 hours Vital signs and Labs for Last 24 Hours: Temp Pulse Resp BP Pulse Ox O2 Del Method 98.6 F 47 L 18 93/55 L 96 Room Air 01/31/25 10:40 01/31/25 11:50 01/31/25 11:50 01/31/25 11:50 01/31/25 11:50 01/31/25 11:34 Laboratory Results - last 24 hr 01/31/25 10:00: WBC 6.2, RBC 4.58 L, Hgb 14.8, Hct 43.5, MCV 95.0 H, MCH 32.3 H, MCHC 34.0, RDW 13.3, Plt Count 207, MPV 9.9, Neut % (Auto) 61.3, Lymph % (Auto) 27.6, [place] % (Auto) 8.0, Eos % (Auto) 2.1, Baso % (Auto) 0.5, Neut # (Auto) 3.8, Lymph # (Auto) 1.7, [place] # (Auto) 0.5, Eos # (Auto) 0.1, Baso # (Auto) 0.0, PT 11.4, INR 1.02, APTT 28.7, Sodium 138, Potassium 4.1, Chloride 105, Carbon Dioxide 23, Anion Gap 14.1, BUN 24 H, Creatinine 1.40 H, Estimated Creat Clear 64, Estimated GFR 49 L, Est GFR ( Amer) 60, Glucose 103 H, Calcium 9.6, Magnesium 1.9, Total Bilirubin 0.9, AST 30, ALT 20, Alkaline Phosphatase 62, Troponin I 0.03, NT-Pro-B Natriuret Pep 149, Total Protein 7.2, Albumin 3.9, Globulin 3.3 H, Albumin/Globulin Ratio 1.2, Lipase 171 01/31/25 11:00: Activated Clotting Time 285 H* I & O for Last 24 hours: Intake & Output 01/28/25 01/29/25 01/30/25 01/31/25 23:59 23:59 23:59 23:59 Weight 222 lb 9 oz Constitutional Constitutional: no acute distress *Routine HEENT Exam Head: Present normocephalic Eye: Present EOMI and PERRL ENT: Present mucous membranes moist *Routine Neck Exam Neck: Present supple; Absent lymphadenopathy *Routine Respiratory Exam Respiratory: Present CTA bilaterally *Routine Cardiovascular Exam Cardiovascular: Present RRR *Routine Abdominal Exam Abdominal: Present soft and normoactive bowel sounds; Absent tenderness *Routine Rectal Exam Rectal:: deferred *Routine Genitalia Exam Genitalia:: deferred *Routine Extremities Exam Extremities: Absent cyanosis, clubbing or edema *Routine Skin Exam Skin: Present warm; Absent rash *Routine Neurological Exam Neurological: Present alert and oriented X3 H&P: Result Imaging and Cardiology Left heart cath: Status: final report (reviewed) Assessment and Plan *Assessment and plan (1) ST elevation [place] (STEMI): Status: Acute Qualifiers: Involved coronary artery: other coronary artery Qualified Code(s): I21 .29 - ST elevation (STEMI) myocardial infarction involving other sites Category: Medical Code(s): I21.3 - ST elevation (STEMI) myocardial infarction of unspecified site (2) Hypertension: Status: Acute Qualifiers: Hypertension type: primary hypertension Qualified Code(s): I10 - Essential (primary) hypertension Category: Medical Code(s): I10 - Essential (primary) hypertension (3) HLD (hyperlipidemia): Status: Acute Qualifiers: Hyperlipidemia type: other hyperlipidemia Qualified Code(s): E78.49 - Other hyperlipidemia Category: Medical Code(s): E78.5 - Hyperlipidemia, unspecified (4) CAD (coronary artery disease): Status: Acute Qualifiers: Associated angina: unspecified whether angina present Coronary Disease- Associated Artery/Lesion type: [place] artery [place] vs. transplanted heart: [place] heart Qualified Code(s): I25.10 - Atherosclerotic heart disease of [place] coronary artery without angina pectoris Category: Medical Code(s): I25.10 - Atherosclerotic heart disease of [place] coronary artery without angina pectoris (5) Atrial flutter: Status: Acute Qualifiers: Atrial flutter type: unspecified Qualified Code(s): I48.92 - Unspecified atrial flutter Category: Medical Code(s): I48.92 - Unspecified atrial flutter (6) Abnormal ECG: Status: Acute Category: Medical Code(s): R94.31 - Abnormal electrocardiogram [ECG] [EKG] Plan Patient admitted for further evaluation and management of his ST elevation [place]. He was taken to the mobile lab technician and had 2 stents placed, see report. Plan for continuos cardiac monitoring and an Echo
--- NOTE | 2025-01-31 13:51 | PC.NURSE ---
pt is bedfast and unable to sit up or move until 1430 related to femoral access from heart cath
--- NOTE | 2025-01-31 16:31 | PC.NURSE ---
All patient care and documentation completed by Zoie KERN was completed under my direct supervision. Aliza Slater RN
[2025-01-31] MEDS: ATORVASTATIN 40MG TABLET 80 MG PO (20:28)
[2025-02-01] VITALS (9 sets, daily range): BP systolic 95–127; BP diastolic 54–76; PULSE 48–82; RESP 11–22; TEMP 36.5–36.8; O2SAT 90–97; BMI 28.2
--- NOTE | 2025-02-01 06:18 | EXP.ACUTE.PN ---
Subjective *Date: 02/01/25 *Time: 06:18 Interval history: Patient with no new complaints today. Medical Exam Vital signs and Labs for Last 24 Hours: Vital Signs Temp Pulse Pulse Resp BP BP Pulse Ox 02/01/25 06:00 53 L 17 112/54 L 95 02/01/25 04:59 02/01/25 04:00 48 L 02/01/25 04:00 97.7 F 48 L 14 113/63 96 02/01/25 02:16 02/01/25 02:00 48 L 95 02/01/25 02:00 49 L 11 L 101/58 L 94 L 02/01/25 00:17 02/01/25 00:00 48 L 02/01/25 00:00 98.2 F 49 L 16 95/57 L 95 02/01/25 00:00 48 L 13 95/57 L 01/31/25 22:00 47 L 17 103/56 L 94 L 01/31/25 20:52 01/31/25 20:50 01/31/25 20:00 49 L 96 01/31/25 20:00 54 L 01/31/25 20:00 98.3 F 50 L 20 129/77 98 01/31/25 18:50 01/31/25 18:45 97.9 F 59 L 17 105/71 L 97 01/31/25 17:45 97.9 F 50 L 20 102/53 L 97 01/31/25 16:53 01/31/25 16:45 97.9 F 48 L 18 87/50 L 97 01/31/25 16:00 48 L 01/31/25 15:45 98.0 F 53 L 25 H 126/76 98 01/31/25 15:30 01/31/25 14:45 98.1 F 47 L 10 L 104/58 L 98 01/31/25 14:15 98.0 F 45 L 23 109/55 L 97 01/31/25 14:00 97 01/31/25 13:45 97.9 F 49 L 15 81/51 L 95 01/31/25 13:15 98.1 F 48 L 17 98/62 L 95 01/31/25 13:00 01/31/25 12:45 98.1 F 45 L 11 L 88/56 L 89 L 01/31/25 12:30 98.1 F 46 L 17 89/67 L 89 L 01/31/25 12:19 51 L 01/31/25 12:15 97.8 F 47 L 12 102/65 L 95 01/31/25 12:07 97 01/31/25 11:50 47 L 18 93/55 L 96 01/31/25 11:45 53 L 18 95/53 L 94 L 01/31/25 11:40 55 L 18 84/53 L 94 L 01/31/25 11:35 51 L 20 86/46 L 95 01/31/25 11:34 51 L 50 L 20 89/56 L 94 L 01/31/25 10:40 98.6 F 67 16 94/61 L 01/31/25 10:30 16 94/61 L 97 01/31/25 10:00 16 119/73 96 01/31/25 09:58 98.6 F 57 L 18 138/80 98 O2 Del Method 02/01/25 06:00 02/01/25 04:59 Room Air 02/01/25 04:00 02/01/25 04:00 Room Air 02/01/25 02:16 Room Air 02/01/25 02:00 Room Air 02/01/25 02:00 Room Air 02/01/25 00:17 Room Air 02/01/25 00:00 02/01/25 00:00 Room Air 02/01/25 00:00 Room Air 01/31/25 22:00 Room Air 01/31/25 20:52 Room Air 01/31/25 20:50 Nasal Cannula 01/31/25 20:00 Room Air 01/31/25 20:00 01/31/25 20:00 Room Air 01/31/25 18:50 Room Air 01/31/25 18:45 Room Air 01/31/25 17:45 Room Air 01/31/25 16:53 Room Air 01/31/25 16:45 Room Air 01/31/25 16:00 01/31/25 15:45 Room Air 01/31/25 15:30 Room Air 01/31/25 14:45 Room Air 01/31/25 14:15 Room Air 01/31/25 14:00 Room Air 01/31/25 13:45 Room Air 01/31/25 13:15 Room Air 01/31/25 13:00 Room Air 01/31/25 12:45 Room Air 01/31/25 12:30 Room Air 01/31/25 12:19 01/31/25 12:15 Room Air 01/31/25 12:07 Room Air 01/31/25 11:50 01/31/25 11:45 01/31/25 11:40 01/31/25 11:35 01/31/25 11:34 Room Air 01/31/25 10:40 Room Air 01/31/25 10:30 01/31/25 10:00 01/31/25 09:58 Room Air Intake and Output 01/31/25 01/31/25 02/01/25 15:59 23:59 07:59 Intake Total 240 / 240 Output Total 1075 / 1075 400 / 400 Balance -835 / -835 -400 / -400 Intake: Intake, Oral Amount 240 / 240 Output: Output, Urine Amount 1075 / 1075 400 / 400 Other: Number of Voids 1 Number of Unmeasured Voids 1 0 Weight 222 lb 9 oz 227 lb 4.8 oz Patient Weight 02/01/25 23:59 Weight 227 lb 4.8 oz Laboratory Results - last 24 hr 01/31/25 10:00: WBC 6.2, RBC 4.58 L, Hgb 14.8, Hct 43.5, MCV 95.0 H, MCH 32.3 H, MCHC 34.0, RDW 13.3, Plt Count 207, MPV 9.9, Neut % (Auto) 61.3, Lymph % (Auto) 27.6, [place] % (Auto) 8.0, Eos % (Auto) 2.1, Baso % (Auto) 0.5, Neut # (Auto) 3.8, Lymph # (Auto) 1.7, [place] # (Auto) 0.5, Eos # (Auto) 0.1, Baso # (Auto) 0.0, PT 11.4, INR 1.02, APTT 28.7, Sodium 138, Potassium 4.1, Chloride 105, Carbon Dioxide 23, Anion Gap 14.1, BUN 24 H, Creatinine 1.40 H, Estimated Creat Clear 64, Estimated GFR 49 L, Est GFR ( Amer) 60, Glucose 103 H, Calcium 9.6, Magnesium 1.9, Total Bilirubin 0.9, AST 30, ALT 20, Alkaline Phosphatase 62, Troponin I 0.03, NT-Pro-B Natriuret Pep 149, Total Protein 7.2, Albumin 3.9, Globulin 3.3 H, Albumin/Globulin Ratio 1.2, Lipase 171 01/31/25 11:00: Activated Clotting Time 285 H* I & O for Labs for Last 24 Hours: Intake & Output 01/29/25 01/30/25 01/31/25 02/01/25 23:59 23:59 23:59 23:59 Intake Total 240 / 240 Output Total 1075 / 1075 400 / 400 Balance -835 / -835 -400 / -400 Weight 222 lb 9 oz 227 lb 4.8 oz Constitutional: Present no acute distress Respiratory: Present normal respiratory effort Cardiac: Present Reg Rate and Rhythm GI: Present normal bowel sounds; Absent tenderness Extremities: Present normal inspection and full ROM Skin: Present intact; Absent erythema Neuro: Present Grossly Intact and moves all extremities Assessment and Plan *Assessment and plan (1) ST elevation [place] (STEMI): Status: Acute Qualifiers: Involved coronary artery: other coronary artery Qualified Code(s): I21.29 - ST elevation (STEMI) myocardial infarction involving other sites Category: Medical Code(s): I21.3 - ST elevation (STEMI) myocardial infarction of unspecified site (2) Hypertension: Status: Acute Qualifiers: Hypertension type: primary hypertension Qualified Code(s): I10 - Essential (primary) hypertension Category: Medical Code(s): I10 - Essential (primary) hypertension (3) HLD (hyperlipidemia): Status: Acute Qualifiers: Hyperlipidemia type: other hyperlipidemia Qualified Code(s): E78.49 - Other hyperlipidemia Category: Medical Code(s): E78.5 - Hyperlipidemia, unspecified (4) CAD (coronary artery disease): Status: Acute Qualifiers: Associated angina: unspecified whether angina present Coronary Disease-Associated Artery/Lesion type: [place] artery [place] vs. transplanted heart: [place] heart Qualified Code(s): I25.10 - Atherosclerotic heart disease of [place] coronary artery without angina pectoris Category: Medical Code(s): I25.10 - Atherosclerotic heart disease of [place] coronary artery without angina pectoris (5) Atrial flutter: Status: Acute Qualifiers: Atrial flutter type: unspecified Qualified Code(s): I48.92 - Unspecified atrial flutter Category: Medical Code(s): I48.92 - Unspecified atrial flutter (6) Abnormal ECG: Status: Acute Category: Medical Code(s): R94.31 - Abnormal electrocardiogram [ECG] [EKG] Plan AM labs pending, HR is up to 55 now, continue current care, Echo in the morning.
--- NOTE | 2025-02-01 06:45 | PC.NURSE ---
pt alert and oriented x4. pt rested throughout the night. pt walks to bathroom. pt uses the urinal so can monitor i and o. pt site at right femoral area from heart cath has dry dressing, no bleeding, and soft on palpation. pt to start back on blood thinners this am. pt has been sinus shayy all night not symptomatic.
[2025-02-01 07:56] LABS: Basophils % 0.7 % (0.1-2.0); Eosinophils # 0.1 K/mm3 (0.0-0.4); Eosinophils % 1.5 % (0.1-12.0); Hemoglobin 14.3 g/dL (14.1-18.0); Lymphocytes # 1.2 K/mm3 (0.7-4.5); Mean Corpuscular HGB Conc 33.3 g/dL (31.8-35.4); Mean Corpuscular Volume 96.2 fl (80-94); Mean Platelet Volume 10.1 fl (7.4-10.4); Monocytes # 0.5 K/mm3 (0.1-1.0); Monocytes % 9.1 % (1.7-9.3); Neutrophils % 68.2 % (37.0-80.0); Platelet Count 171 K/mm3 (142-424); Red Blood Count 4.47 M/mm3 (4.60-6.20); Red Cell Distribution Width 13.7 % (11.5-17.5); White Blood Count 5.8 K/mm3 (4.8-10.8)
[2025-02-01 08:08] LABS: Anion Gap 12.8 mEq/L (5-15); Blood Urea Nitrogen 20 mg/dl (9-20); Calcium 8.9 mg/dl (8.4-10.2); Carbon Dioxide 23 mmol/L (22.0-30.0); Chloride 106 mmol/L (98-107); Creatinine Clearance Estimated 76 mL/min (50-200); Estimated Glomerular Filt Rate 59 ml/min (>60); GFR (African American) 71 ML/MIN (>60); Glucose 70 mg/dl (74-100); Potassium 3.8 mmoL/L (3.5-5.1); Sodium 138 mmol/L (136-145)
[2025-02-01] MEDS: ASPIRIN EC 81MG TABLET 81 MG PO (08:09)
[2025-02-01] MEDS: TICAGRELOR 90MG TABLET 90 MG PO ×2 (08:09→20:11)
[2025-02-01] MEDS: TAMSULOSIN 0.4MG CAPSULE 0.4 MG PO (08:09)
[2025-02-01] MEDS: DOCUSATE SODIUM 100 MG CAPSULE PO (09:34)
[2025-02-01] MEDS: RIVAROXABAN 15MG TABLET 15 MG PO (17:05)
--- NOTE | 2025-02-01 18:01 | PC.NURSE ---
Pt has done well this shift. Reports no more chest pain/discomfort since his heart cath yesterday. Remains on room air. Ambulating independently. VSS. HR is better and in the 60's this afternoon. No c/o nausea or vomiting. C/O being constipated this am and recreational resort manager MD notified, orders carried out. No other needs or concerns voiced by patient or family. Care ongoing.
[2025-02-01] MEDS: ATORVASTATIN 40MG TABLET 80 MG PO (20:11)
[2025-02-02] VITALS: BP 98/50; PULSE 61; PULSE 65; RESP 16; TEMP 36.8; O2SAT 96
--- NOTE | 2025-02-02 03:14 | PC.NURSE ---
Pt resting in bed with eyes closed at this time. Respirations even and unlabored. Pt has consistently denied pain or any other needs. VSS. Bed is low, locked, and call light is in reach.
[2025-02-02 04:00] VITALS: BP 109/55; PULSE 76; PULSE 80; RESP 16; TEMP 36.6; O2SAT 98; BMI 27.7
--- NOTE | 2025-02-02 07:00 | CA_ITS ---
APPROVED REPORT EXAM: Comprehensive 2D, Doppler, and color-flow Echocardiogram Producer: Sophia Moss CRT Ht: 6 ft 3 in Wt: 222lbs BSA: 2.29 BP: 93/55 mmHg Indications: Chest Pain, Atrial Flutter, Hyperlipidemia, Hypertension/HDD, STEMI, CATH 01-31-25 STENTS EF 45-50%, CABG 2000 X 5, ABLATION 2 MONTHS AGO AT [employer] RVDd 3.84 cm (0.9-2.6) LA Diam 3.41 cm (1.9-4.0) LVDd 5.42 cm (3.5-5.7) LVDs 4.05 cm (3.5-5.7) IVSd 1.90 cm (0.6-1.1) PWd 0.63 cm (0.6-1.1) EF (Teich) 49.40% FS 25.30% EDV (Teich) 142.50 mL TAPSE 1.02 (<1.7) ESV (Teich) 72.10 mL LV Diastology E Decel Time 87 (160-240 msec) E/A Ratio 0.53 MED A' 10.40 cm/s LAT A' 5.50 cm/s Aortic Valve AO Peak GR. 3.20 mmHg Mitral Valve MV A Velocity 57.0 (40-130 cm/s) E/A Ratio 0.53 Pulmonary Valve PV Peak Velocity 127.0 (50-150 cm/s) Tricuspid Valve TR P. Velocity 203.00 cm/s RAP Estimate 10.00 mmHg RVSP 26.50 mmHg Left Ventricle The left ventricle is normal size. The left ventricular systolic function is normal. The left ventricular ejection fraction is within the normal range. There is increased LV wall thickness. Regional wall motion is difficult to evaluate in the setting of technically difficult study. Diastolic function is indeterminate. LVEF is 50-55%. Right Ventricle The right ventricle is not very well-visualized, but grossly appears mildly to moderately dilated with mildly reduced RV function. Atria The left atrium is mildly dilated. The right atrium size is normal. The interatrial septum is not well-visualized. Aortic Valve The aortic valve is mildly thickened. There is no aortic valvular stenosis. No aortic regurgitation is present. Mitral Valve The mitral valve is normal in structure. No evidence of mitral valve stenosis. Trace mitral regurgitation. Tricuspid Valve The tricuspid valve leaflets are thin and pliable. Trace tricuspid regurgitation. There is insufficient TR jet to estimate RVSP. Pulmonic Valve The pulmonary valve is normal in structure. Trace pulmonic regurgitation. Great Vessels The aortic root is normal in size. The ascending aorta is mildly dilated, measuring 4.1 cm in diameter. IVC is normal in size and collapses >50% with inspiration. Pericardium There is no pericardial effusion. Other Information Study Quality: Fair Conclusion Low normal LV systolic function (LVEF 50-55%). Mild to moderate RV dilation with mild reduction in RV function. Left atrial dilation. No significant valvular stenosis or regurgitation. Mildly dilated ascending aorta, measuring 4.0 cm in diameter. Electronically signed by : Genevieve Méndez MD 02/02/2025 12:31:51
[2025-02-02] MEDS: TAMSULOSIN 0.4MG CAPSULE 0.4 MG PO (07:45)
[2025-02-02] MEDS: ASPIRIN EC 81MG TABLET 81 MG PO (07:45)
[2025-02-02] MEDS: TICAGRELOR 90MG TABLET 90 MG PO (07:45)
--- NOTE | 2025-02-02 07:48 | EXP.PN ---
Subjective *Date: 02/02/25 *Time: 09:01 Interval history: Patient awakened for assessment. He states he is comfortable. He did sleep with his sleeping machine on. He denies chest pain and shortness of breath. He has ambulated in the room without difficulties. He is hungry for breakfast. He is anxious to go home. He had echo done this morning Exam Data for Last 24 hours Vital signs and Labs for Last 24 Hours: Temp Pulse Resp BP Pulse Ox O2 Del Method 97.9 F 76 16 109/55 L 98 Room Air 02/02/25 04:00 02/02/25 04:00 02/02/25 04:00 02/02/25 04:00 02/02/25 04:00 02/02/25 06:19 Laboratory Results - last 24 hr 02/01/25 06:30: WBC 5.8, RBC 4.47 L, Hgb 14.3, Hct 43.0, MCV 96.2 H, MCH 32.0 H, MCHC 33.3, RDW 13.7, Plt Count 171, MPV 10.1, Neut % (Auto) 68.2, Lymph % (Auto) 20.0, [place] % (Auto) 9.1, Eos % (Auto) 1.5, Baso % (Auto) 0.7, Neut # (Auto) 4.0, Lymph # (Auto) 1.2, [place] # (Auto) 0.5, Eos # (Auto) 0.1, Baso # (Auto) 0.0, Sodium 138, Potassium 3.8, Chloride 106, Carbon Dioxide 23, Anion Gap 12.8, BUN 20, Creatinine 1.20, Estimated Creat Clear 76, Estimated GFR 59, Est GFR ( Amer) 71, Glucose 70 L D, Calcium 8.9 I & O for Last 24 hours: Intake & Output 01/30/25 01/31/25 02/01/25 02/02/25 11:59 11:59 11:59 11:59 Intake Total 660 / 660 1400 / 1400 Output Total 1775 / 1775 0 / 0 Balance -1115 / -1115 1400 / 1400 Weight 218 lb 227 lb 4.8 oz 223 lb Constitutional Constitutional: no acute distress *Routine Respiratory Exam Respiratory: Present CTA bilaterally (Anteriorly and posteriorly) *Routine Cardiovascular Exam Cardiovascular: Present RRR *Routine Abdominal Exam Abdominal: Present soft and normoactive bowel sounds; Absent tenderness or distended *Routine Extremities Exam Extremities: Present full ROM; Absent edema or calf tenderness *Routine Neurological Exam Neurological: Present alert and oriented X3 Assessment and Plan *Assessment and plan (1) ST elevation [place] (STEMI): Status: Acute Qualifiers: Involved coronary artery: other coronary artery Qualified Code(s): I21.29 - ST elevation (STEMI) myocardial infarction involving other sites Category: Medical Code(s): I21.3 - ST elevation (STEMI) myocardial infarction of unspecified site (2) Hypertension: Status: Acute Qualifiers: Hypertension type: primary hypertension Qualified Code(s): I10 - Essential (primary) hypertension Category: Medical Code(s): I10 - Essential (primary) hypertension (3) HLD (hyperlipidemia): Status: Acute Qualifiers: Hyperlipidemia type: other hyperlipidemia Qualified Code(s): E78.49 - Other hyperlipidemia Category: Medical Code(s): E78.5 - Hyperlipidemia, unspecified (4) CAD (coronary artery disease): Status: Acute Qualifiers: Associated angina: unspecified whether angina present Coronary Disease-Associated Artery/Lesion type: [place] artery [place] vs. transplanted heart: hoh heart Qualified Code(s): I25.10 - Atherosclerotic heart disease of [place]oh coronary artery without angina pectoris Category: Medical Code(s): I25.10 - Atherosclerotic heart disease of [place]oh coronary artery without angina pectoris (5) Atrial flutter: Status: Acute Qualifiers: Atrial flutter type: unspecified Qualified Code(s): I48.92 - Unspecified atrial flutter Category: Medical Code(s): I48.92 - Unspecified atrial flutter (6) Abnormal ECG: Status: Acute Category: Medical Code(s): R94.31 - Abnormal electrocardiogram [ECG] [EKG] Plan Cardiology to follow. Echo results pending. Probably home today. Dr. Cano entry - Saw patient, agree with above note, LVEF is low on prelim Echo report, cardiology to see patient today.
[2025-02-02 08:00] VITALS: BP 113/60; PULSE 72; PULSE 80; RESP 14; TEMP 36.8; O2SAT 99
[2025-02-02 10:24] LABS: Chol/HDL Ratio 3.6 (1-3.5); Cholesterol 108 mg/dl (140-200); HDL Cholesterol 30 mg/dl (40-60); Triglycerides 85 mg/dl (30-150); VLDL Cholesterol 17 mg/dL (0-40)
[2025-02-02 10:37] LABS: Direct LDL Cholesterol 51.94 mg/dL (100-129)
--- NOTE | 2025-02-02 11:41 | EXP.CARD.CON ---
History of Present Illness History of Present Illness Consult date: 02/02/25 Requesting physician: Joe Israel Consult reason: chest pain Chief complaint: chest pain History of present illness: This is a 75-year-old white gentleman who presented to the emergency department complaints of chest pain on Sunday. The patient states that he felt fine when he went to bed the night before but he woke up with a burning sensation between his shoulder blades and radiated through to his chest under his sternum. He states that this persisted for quite some time. He took a couple of nitroglycerin and his daily dose of metoprolol. He had no relief of his chest pain and burning. So he came to the emergency department for further evaluation. The patient was found to have a STEMI and went directly to the cardiac catheterization laboratory. The patient underwent stenting to his third obtuse marginal via saphenous vein graft with 2 drug-eluting stents. The patient tolerated the procedure well. This morning he denies any chest pain or pressure. He denies any shortness of breath or edema. He denies any fever, chills, nausea, vomiting, diarrhea, PND orthopnea. The patient did have a atrial flutter ablation at [facility] in November. The patient Xarelto was subsequently stopped as he remains in sinus rhythm and has had no atrial fibrillation or flutter since that time. He does wear a smart watch that tells him when he is out of rhythm. He has had a heart rate around 50 bpm since his ablation. [facility] Disclaimer: The information contained in this section may have been updated after the patient was seen, as this information can be updated by other users. Medical History (Updated 01/31/25 @ 13:45 by Juan Manuel Cano MD) HTN (hypertension) Hydroureter, left Left ureteral stone Nephrolithiasis Labyrinthitis BPH (benign prostatic hyperplasia) Osteoarthritis Atrial flutter CAD (coronary artery disease) HLD (hyperlipidemia) Abnormal ECG Hx of supraventricular tachycardia Surgical History (Updated 01/31/25 @ 13:42 by Juan Manuel Cano MD) History of cardiac radiofrequency ablation History of hip replacement History of knee replacement S/P CABG x 5 Family History Family history of heart disease Social History Smoking Status: Never smoker alcohol intake: current alcohol intake frequency: a few times a month substance use type: denies use current occupational status: retired and other Travel in the last 8 weeks: None household members: significant other marital status: caffeine: No Contact w/someone who lives/traveled outside [place] past 30 days?: No Exposure to someone with infectious disease in past 14 days?: No Do you have a fever (greater than 100.4 F or 38 C)?: No Have you tested positive for COVID-19: No Exposed to someone with COVID-19 in past 14 days?: No Do you have a sore throat?: No Do you have a cough?: No Do you have any weakness?: No Are you experiencing any nausea/vomitting?: No Do you have any diarrhea?: No Are you experiencing any unusual bleeding?: No Do you have any muscle aches/pain?: No Do you have any abdominal pain?: No Are you experiencing loss of taste or smell?: No Review of Systems Review of Systems Review of systems:: pertinent systems reviewed and negative unless documented below Constitutional Constitutional: Reports system reviewed and no additional complaints, except as documented Eyes Eyes: Reports system reviewed and no additional complaints, except as documented ENT Ears, Nose, Mouth, and Throat: Denies dizziness *Cardiovascular Cardiovascular: Reports system reviewed and no additional complaints, except as documented, Reports chest pain, Reports chest pain at rest and Reports chest pain with activity *Respiratory Respiratory: Reports system reviewed and no additional complaints, except as documented *Gastrointestinal Gastrointestinal: Reports system reviewed and no additional complaints, except as documented *Genitourinary Genitourinary: Reports system reviewed and no additional complaints, except as documented *Musculoskeletal Musculoskeletal: Reports system reviewed and no additional complaints, except as documented Integumentary/Breasts Skin/Breast: Reports system reviewed and no additional complaints, except as documented *Neurologic Neurologic: Reports system reviewed and no additional complaints, except as documented, Denies confusion and Denies dizziness Psychiatric Psychiatric: Reports system reviewed and no additional complaints, except as documented and Denies confusion Endocrine Endocrine: Reports system reviewed and no additional complaints, except as documented Hematologic/Lymphatic Hematologic/Lymphatic: Reports system reviewed and no additional complaints, except as documented Allergic/Immunologic Allergic/Immunologic: Reports system reviewed and no additional complaints, except as documented Exam Data for Last 24 hours Vital signs and Labs for Last 24 Hours: Temp Pulse Resp BP Pulse Ox O2 Del Method 98.2 F 72 14 113/60 99 Room Air 02/02/25 08:00 02/02/25 08:00 02/02/25 08:00 02/02/25 08:00 02/02/25 08:00 02/02/25 08:42 Laboratory Results - last 24 hr 02/02/25 09:53: Triglycerides 85, Cholesterol 108 L, LDL Cholesterol Direct 51.94 L, VLDL Cholesterol 17, HDL Cholesterol 30 L, Cholesterol/HDL Ratio 3.6 H I & O for Last 24 hours: Intake & Output 01/30/25 01/31/25 02/01/25 02/02/25 23:59 23:59 23:59 23:59 Intake Total 240 / 240 1820 / 1820 360 / 360 Output Total 1075 / 1075 700 / 700 0 / 0 Balance -835 / -835 1120 / 1120 360 / 360 Weight 222 lb 9 oz 227 lb 4.8 oz 223 lb Constitutional Constitutional: no acute distress and average body habitus *Routine HEENT Exam Head: Present normocephalic and atraumatic ENT: Present mucous membranes moist *Routine Neck Exam Neck: Present supple, full ROM and normal carotid upstroke; Absent JVD, carotid bruit or lymphadenopathy *Routine Respiratory Exam Respiratory: Present CTA bilaterally, normal respiratory effort, able to speak in complete sentences and symmetric chest movement *Routine Cardiovascular Exam Cardiovascular: Present RRR, Normal S1 and Normal S2; Absent murmur or gallop *Routine Abdominal Exam Abdominal: Present soft and normoactive bowel sounds; Absent tenderness, distended or organomegaly *Routine Extremities Exam Extremities: Present full ROM, pulses intact and normal capillary refill; Absent cyanosis, clubbing or edema *Routine Skin Exam Skin: Present intact and warm; Absent erythema *Routine Neurological Exam Neurological: Present alert, oriented X3 and CN II-XII intact; Absent sensory deficit or motor deficit Routine Psychiatric Exam Psychiatric: Present normal affect Meds Home Medications and Allergies Home Medications ?Medication ?Instructions ?Recorded ?Confirmed ?Type coenzyme Q10 300 mg capsule (Co 200 mg PO DAILY 05/27/24 01/31/25 History Q-10) lisinopril 10 1 tab PO DAILY 05/27/24 01/31/25 History mg-hydrochlorothiazide 12.5 mg tablet multivitamin (Daily Multi-Vitamin 1 tab PO DAILY 05/27/24 01/31/25 History tablet) rosuvastatin 40 mg tablet 40 mg PO HS 05/27/24 01/31/25 History tamsulosin 0.4 mg capsule 0.4 mg PO DAILY 05/27/24 01/31/25 History metoprolol succinate 25 mg 25 mg PO DAILY 12/17/24 01/31/25 History tablet,extended release 24 hr melatonin 10 mg tablet 10 mg PO HSP PRN Sleep 01/31/25 02/01/25 History aspirin 81 mg tablet,delayed 81 mg PO DAILY 02/01/25 02/01/25 History release magnesium citrate 100 mg tablet 100 mg PO DAILY 02/01/25 02/01/25 History New Prescriptions to Start Prescriptions: Allergies Allergy/AdvReac Type Severity Reaction Status Date / Time shark liver oil Allergy Severe Hives Verified 01/31/25 13:53 KEVIN SHARK Allergy Intermediate I-HIVES Uncoded 12/17/24 13:28 Assessment and Plan *Assessment and plan (1) ST elevation [place] (STEMI): Status: Acute Qualifiers: Involved coronary artery: other coronary artery Qualified Code(s): I21.29 - ST elevation (STEMI) myocardial infarction involving other sites Category: Medical Code(s): I21.3 - ST elevation (STEMI) myocardial infarction of unspecified site (2) CAD (coronary artery disease): Status: Acute Qualifiers: Associated angina: unspecified whether angina present Coronary Disease-Associated Artery/Lesion type: [place] artery [place] vs. transplanted heart: [place] heart Qualified Code(s): I25.10 - Atherosclerotic heart disease of [place] coronary artery without angina pectoris Category: Medical Code(s): I25.10 - Atherosclerotic heart disease of [place] coronary artery without angina pectoris (3) Hypertension: Status: Acute Qualifiers: Hypertension type: primary hypertension Qualified Code(s): I10 - Essential (primary) hypertension Category: Medical Code(s): I10 - Essential (primary) hypertension (4) HLD (hyperlipidemia): Status: Acute Qualifiers: Hyperlipidemia type: other hyperlipidemia Qualified Code(s): E78.49 - Other hyperlipidemia Category: Medical Code(s): E78.5 - Hyperlipidemia, unspecified (5) Atrial flutter: Status: Acute Qualifiers: Atrial flutter type: unspecified Qualified Code(s): I48.92 - Unspecified atrial flutter Category: Medical Code(s): I48.92 - Unspecified atrial flutter (6) Abnormal ECG: Status: Acute Category: Medical Code(s): R94.31 - Abnormal electrocardiogram [ECG] [EKG] Plan Plan: 1. The patient presented to the emergency department with chest pain. The patient was found to have a STEMI and taken to [facility]. He had 2 stents placed to his third obtuse marginal artery via saphenous vein graft. The patient tolerated the procedure well. He will be on Brilinta and aspirin for dual antiplatelet therapy. 2. His coronary artery disease is now stable. 3. His blood pressure is well-controlled. 4. His LDL goal is less than 55. His LDL is 51. Continue Crestor. 5. The patient does have a history of atrial flutter and is status post cardiac ablation in November 2024. The patient recently had his Xarelto stopped by EP because he remains in sinus rhythm and does wear a smart watch that tells him when he is out of rhythm. Will continue to hold his Xarelto/anticoagulation at this time per EP recommendation. 6. Continue Toprol 12.5 mg daily for suppression of atrial flutter status post ablation. 7. Hold lisinopril HCT. His blood pressure has been on the lower side and he has not been getting his lisinopril HCT during this hospitalization. 8. Echocardiogram shows his ejection fraction is normal at 55%. 9. No further recommendations at this time from a cardiac standpoint. The patient is stable for discharge home today from a cardiac standpoint with follow-up in cardiology clinic next week. 10. The patient will need to be discharged on the following cardiac medications: Aspirin 81 mg daily, Brilinta 90 mg p.o. twice daily, Crestor 40 mg p.o. nightly, metoprolol succinate 12.5 mg p.o. daily. Thank you for the opportunity to help dissipate in the care of this patient. All recommendations and orders are per Dr. Méndez.
[2025-02-02 12:00] VITALS: PULSE 70
--- NOTE | 2025-02-02 13:22 | EXP.ACUTE.PN ---
Subjective *Date: 02/02/25 *Time: 13:22 Interval history: Patient has done well, today LVEF was normal, cardiology note reviewed, OK for discharge. Medical Exam Vital signs and Labs for Last 24 Hours: Vital Signs Temp Pulse Pulse Resp BP Pulse Ox O2 Del Method 02/02/25 12:00 70 02/02/25 08:42 Room Air 02/02/25 08:00 80 02/02/25 08:00 98.2 F 72 14 113/60 99 Room Air 02/02/25 07:50 Room Air 02/02/25 06:19 Room Air 02/02/25 05:00 Room Air 02/02/25 04:00 80 02/02/25 04:00 97.9 F 76 16 109/55 L 98 Room Air 02/02/25 03:00 Room Air 02/02/25 01:00 Room Air 02/02/25 00:00 65 02/02/25 00:00 98.2 F 61 16 98/50 L 96 Room Air 02/01/25 23:00 Room Air 02/01/25 21:00 Room Air 02/01/25 20:00 55 L 02/01/25 20:00 Room Air 02/01/25 20:00 98.1 F 61 16 110/58 L 94 L Room Air 02/01/25 18:42 Room Air 02/01/25 17:00 Room Air 02/01/25 16:00 60 02/01/25 16:00 97.9 F 60 16 111/67 97 02/01/25 15:00 Room Air Intake and Output 02/01/25 02/02/25 02/02/25 23:59 07:59 15:59 Intake Total 1160 / 1820 360 / 360 Output Total 0 / 700 0 / 0 0 / 0 Balance 1160 / 1120 0 / 360 360 / 360 Intake: Intake, Oral Amount 1160 / 1820 360 / 360 Output: Output, Urine Amount 0 / 700 0 / 0 0 / 0 Other: Number of Unmeasured Voids 1 1 Weight 223 lb Patient Weight 02/02/25 23:59 Weight 223 lb Laboratory Results - last 24 hr 02/02/25 09:53: Triglycerides 85, Cholesterol 108 L, LDL Cholesterol Direct 51.94 L, VLDL Cholesterol 17, HDL Cholesterol 30 L, Cholesterol/HDL Ratio 3.6 H I & O for Labs for Last 24 Hours: Intake & Output 01/30/25 01/31/25 02/01/25 02/02/25 23:59 23:59 23:59 23:59 Intake Total 240 / 240 1820 / 1820 360 / 360 Output Total 1075 / 1075 700 / 700 0 / 0 Balance -835 / -835 1120 / 1120 360 / 360 Weight 222 lb 9 oz 227 lb 4.8 oz 223 lb Assessment and Plan *Assessment and plan (1) ST elevation [place] (STEMI): Status: Acute Qualifiers: Involved coronary artery: other coronary artery Qualified Code(s): I21.29 - ST elevation (STEMI) myocardial infarction involving other sites Category: Medical Code(s): I21.3 - ST elevation (STEMI) myocardial infarction of unspecified site (2) Hypertension: Status: Acute Qualifiers: Hypertension type: primary hypertension Qualified Code(s): I10 - Essential (primary) hypertension Category: Medical Code(s): I10 - Essential (primary) hypertension (3) HLD (hyperlipidemia): Status: Acute Qualifiers: Hyperlipidemia type: other hyperlipidemia Qualified Code(s): E78.49 - Other hyperlipidemia Category: Medical Code(s): E78.5 - Hyperlipidemia, unspecified (4) CAD (coronary artery disease): Status: Acute Qualifiers: Associated angina: unspecified whether angina present Coronary Disease-Associated Artery/Lesion type: [place] artery [place] vs. transplanted heart: [place] heart Qualified Code(s): I25.10 - Atherosclerotic heart disease of [place] coronary artery without angina pectoris Category: Medical Code(s): I25.10 - Atherosclerotic heart disease of [place] coronary artery without angina pectoris (5) Atrial flutter: Status: Acute Qualifiers: Atrial flutter type: unspecified Qualified Code(s): I48.92 - Unspecified atrial flutter Category: Medical Code(s): I48.92 - Unspecified atrial flutter (6) Abnormal ECG: Status: Acute Category: Medical Code(s): R94.31 - Abnormal electrocardiogram [ECG] [EKG] Plan Discharge home today
--- NOTE | 2025-02-02 15:49 | P.DS_ITS ---
General Admission date:: 01/31/25 Discharge date: 02/02/25 HPI HPI HPI: Mr. Macario is a 74 year old patient of [facility] with a history of coronary artery disease, s/p 5 vessel CABG in 2000. He presented to [facility] ER this morning complaining of chest pain. He states he felt well when he went to bed last night but woke up with a burning sensation between his shoulder blades that persisted for sometime. He states that the pain then radiated through to the front part of his chest, under his sternum this morning. He took a couple of NTG and his daily dose of Metoprolol and got no relief so he came to the ER for further evaluation. He reports having a cardiac ablation at about 2 months ago for atrial flutter. He had a follow up visit there this past week and his Xarelto was stopped at that visit. He notes that since his ablation procedure he has felt well, his heart rate has stayed around 50. Hospital Course Hospital Course Hospital Course: Patient was taken to the [facility] on admission with stent placements. He had no further chest pain. He was able to ambulate without discomfort or problems. He was eating well. He was followed by cardiology with the following plan: Plan: 1. The patient presented to the emergency department with chest pain. The patient was found to have a STEMI and taken to the [facility]. He had 2 stents placed to his third obtuse marginal artery via saphenous vein graft. The patient tolerated the procedure well. He will be on Brilinta and aspirin for dual antiplatelet therapy. 2. His coronary artery disease is now stable. 3. His blood pressure is well-controlled. 4. His LDL goal is less than 55. His LDL is 51. Continue Crestor. 5. The patient does have a history of atrial flutter and is status post cardiac ablation in November 2024. The patient recently had his Xarelto stopped by EP because he remains in sinus rhythm and does wear a smart watch that tells him when he is out of rhythm. Will continue to hold his Xarelto/anticoagulation at this time per EP recommendation. 6. Continue Toprol 12.5 mg daily for suppression of atrial flutter status post ablation. 7. Hold lisinopril HCT. His blood pressure has been on the lower side and he has not been getting his lisinopril HCT during this hospitalization. 8. Echocardiogram shows his ejection fraction is normal at 55%. 9. No further recommendations at this time from a cardiac standpoint. The patient is stable for discharge home today from a cardiac standpoint with follow -up in cardiology clinic next week. 10. The patient will need to be discharged on the following cardiac medications: Aspirin 81 mg daily, Brilinta 90 mg p.o. twice daily, Crestor 40 mg p.o. nightly, metoprolol succinate 12.5 mg p.o. daily. Exam Data for Last 24 hours Vital signs and Labs for Last 24 Hours: Temp Pulse Resp BP Pulse Ox O2 Del Method 98.2 F 70 14 113/60 99 Room Air 02/02/25 08:00 02/02/25 12:00 02/02/25 08:00 02/02/25 08:00 02/02/25 08:00 02/02/25 08:42 Laboratory Results - last 24 hr 02/02/25 09:53: Triglycerides 85, Cholesterol 108 L, LDL Cholesterol Direct 51 .94 L, VLDL Cholesterol 17, HDL Cholesterol 30 L, Cholesterol/HDL Ratio 3.6 H I & O for Last 24 hours: Intake & Output 01/31/25 02/01/25 02/02/25 02/03/25 11:59 11:59 11:59 11:59 Intake Total 660 / 660 1760 / 1760 140 / 140 Output Total 1775 / 1775 0 / 0 Balance -1115 / -1115 1760 / 1760 140 / 140 Weight 218 lb 227 lb 4.8 oz 223 lb Narrative: Constitutional Constitutional: no acute distress *Routine Respiratory Exam Respiratory: Present CTA bilaterally (Anteriorly and posteriorly) *Routine Cardiovascular Exam Cardiovascular: Present RRR *Routine Abdominal Exam Abdominal: Present soft and normoactive bowel sounds; Absent tenderness or distended *Routine Extremities Exam Extremities: Present full ROM; Absent edema or calf tenderness *Routine Neurological Exam Neurological: Present alert and oriented X3 Results Data Completed and Pending Completed studies during hospitalization [Text1]: 01/31/2025 EKG Conclusion Acute lateral/inferior ischemia ST elevation [address] depressions and T wave inversions V2 and V3 as well as 1 and aVL 02/02/2025 ECHO Conclusion Low normal LV systolic function (LVEF 50-55%). Mild to moderate RV dilation with mild reduction in RV function. Left atrial dilation. No significant valvular stenosis or regurgitation. Mildly dilated ascending aorta, measuring 4.0 cm in diameter. [address] elevation myocardial infarction involving the third obtuse marginal artery Successful stenting of the third obtuse marginal artery via the saphenous vein graft, 100% occlusion reduced to 0% with 2 contiguous drug-eluting stents PLAN 1. Plavix 75 mg daily plus restart either Xarelto or Eliquis for paroxysmal atrial fibrillation and then aspirin 81 mg daily. Continue all 3 blood thinners for the next 30 days and then discontinue aspirin and maintain Plavix and Eliquis or Xarelto 2. LDL less than 55 to achieve that high intensity statin 3. Avoidance of tobacco products 4. Supportive care for at least the next 48 hours with continuous telemetry monitoring 5. Echocardiogram Sunday 6. Standard therapy for ischemic heart disease including ARNEL inhibitor's and/or beta-blockers if tolerated 01/31/2025 CXR IMPRESSION: 1. Mild cardiomegaly. 2. No focal pneumonia. Labs on day of discharge: Labs from last 24 hours 02/02/25 09:53 Triglycerides 85 Cholesterol 108 L LDL Cholesterol Direct 51.94 L VLDL Cholesterol 17 HDL Cholesterol 30 L Cholesterol/HDL Ratio 3.6 H DS: Diagnosis Discharge Diagnosis (1) ST elevation [place] (STEMI): Status: Acute Code(s): I21.3 - ST elevation (STEMI) myocardial infarction of unspecified site Qualifiers: Involved coronary artery: other coronary artery Qualified Code(s): I21.29 - ST elevation (STEMI) myocardial infarction involving other sites (2) Hypertension: Status: Acute Code(s): I10 - Essential (primary) hypertension Qualifiers: Hypertension type: primary hypertension Qualified Code(s): I10 - Essential (primary) hypertension (3) HLD (hyperlipidemia): Status: Acute Code(s): E78.5 - Hyperlipidemia, unspecified Qualifiers: Hyperlipidemia type: other hyperlipidemia Qualified Code(s): E78.49 - Other hyperlipidemia (4) CAD (coronary artery disease): Status: Acute Code(s): I25.10 - Atherosclerotic heart disease of [place] coronary artery without angina pectoris Qualifiers: Associated angina: unspecified whether angina present Coronary Disease- Associated Artery/Lesion type: [place] artery [place] vs. transplanted heart: [place] heart Qualified Code(s): I25.10 - Atherosclerotic heart disease of [place] coronary artery without angina pectoris (5) Atrial flutter: Status: Acute Code(s): I48.92 - Unspecified atrial flutter Qualifiers: Atrial flutter type: unspecified Qualified Code(s): I48.92 - Unspecified atrial flutter (6) Abnormal ECG: Status: Acute Code(s): R94.31 - Abnormal electrocardiogram [ECG] [EKG] Meds Home Medications and Allergies Home Medications ?Medication ?Instructions ?Recorded ?Confirmed ?Type coenzyme Q10 300 mg capsule (Co 200 mg PO DAILY 05/27/24 01/31/25 History Q-10) multivitamin (Daily Multi-Vitamin 1 tab PO DAILY 05/27/24 01/31/25 History tablet) rosuvastatin 40 mg tablet 40 mg PO HS 05/27/24 01/31/25 History tamsulosin 0.4 mg capsule 0.4 mg PO DAILY 05/27/24 01/31/25 History melatonin 10 mg tablet 10 mg PO HSP PRN Sleep 01/31/25 02/01/25 History aspirin 81 mg tablet,delayed 81 mg PO DAILY 02/01/25 02/01/25 History release magnesium citrate 100 mg tablet 100 mg PO DAILY 02/01/25 02/01/25 History metoprolol succinate 25 mg 12.5 mg (1/2 x 25 mg) PO DAILY #1 02/02/25 01/31/25 Rx tablet,extended release 24 hr tab ticagrelor 90 mg tablet (Brilinta) 90 mg PO BID #60 tabs 02/02/25 Rx New Prescriptions to Start Prescriptions: ticagrelor [Brilinta] Juan Manuel Cano Allergies Allergy/AdvReac Type Severity Reaction Status Date / Time shark liver oil Allergy Severe Hives Verified 01/31/25 13:53 KEVIN SHARK Allergy Intermediate I-HIVES Uncoded 12/17/24 13:28 Discharge Plan Disposition Patient Disposition: Home, Self-Care Condition: Good Discharge Order Discharge Orders: Discharge Order (Routine); Ordered 02/02/25 Ordered By: Juan Manuel Cano Follow up Plan Follow up with: Naina Pino APRN [Nurse Practitioner] - 02/11/25 10:45 am Juan Manuel Cano MD [Primary Care Provider] - 02/16/25 11:00 am Prescriptions/Medication Reconciliation: New Brilinta 90 mg Tablet 90 mg PO BID Qty: 60 5RF Continued multivitamin [Daily Multi-Vitamin] Tablet 1 tab PO DAILY tamsulosin 0.4 mg capsule 0.4 mg PO DAILY Patient Comments: TAKE 1 CAPSULE BY MOUTH EVERY DAY Rx Instructions: pt states he takes med every other day rosuvastatin 40 mg tablet 40 mg PO HS Patient Comments: TAKE 1 TABLET BY MOUTH EVERY DAY AT BEDTIME Co Q-10 300 mg capsule 200 mg PO DAILY melatonin 10 mg Tablet 10 mg PO HSP PRN (Reason: Sleep) aspirin 81 mg Tablet,Delayed Release (Dr/Ec) 81 mg PO DAILY magnesium citrate 100 mg Tablet 100 mg PO DAILY Changed metoprolol succinate 25 mg tablet extended release 24 hr 12.5 mg PO DAILY Qty: 1 0RF Patient Comments: TAKE 1 TABLET BY MOUTH DAILY Discontinued lisinopril-hydrochlorothiazide 10-12.5 mg tablet 1 tab PO DAILY Patient Comments: TAKE 1 TABLET BY MOUTH EVERY DAY Problem Reconciliation Problems Reviewed?: Yes Patient Discharge Instructions ACTIVITY: Limited activity DIET: continue same diet Patient Instructions: Heart Attack, Cardiac Catheterization, Surgical Site Infection, Cardiology Catheterization Patient / Family Discharge Instructions Print Language: Wolof Providers Primary Care Provider: Juan Manuel Cano Admit Provider: Juan Manuel Cano Attending Provider: Juan Manuel Cano
--- NOTE | 2025-02-03 09:57 | SW/DCPLANNER ---
Spoke with patient on the phone. Patient stated that he is doing great and glad to be back at home and in his own bed. Patient stated that he is aware of his upcoming appointments. Patient stated that [facility] had to order his new medicine and its supposed to be in today. Patient stated that he has no concerns or questions at this time. Lilly Belcher
== END 2025-02-02 14:30 | disposition home or self-care (01) | DRG 322 ==
LOC: ER 10:29 → CATHLAB 10:43 → 2ND 12:14
PROVIDERS: Internal Medicine; Nurse Practitioner Family; Admitting Provider Family Medicine; Emergency Provider Emergency Medicine; PCP Family Medicine; Visit Provider Family Medicine
PROC: 027035Z Dilation of Coronary Artery, One Artery with Two Drug-eluting Intraluminal Devices, Percutaneous Approach (ICD-10-PCS; principal; 2025-01-31 10:25)
DX: I21.19 ST elevation (STEMI) myocardial infarction involving other coronary artery of inferior wall (principal); I48.92 Unspecified atrial flutter; Z95.1 Presence of aortocoronary bypass graft; I10 Essential (primary) hypertension; E78.5 Hyperlipidemia, unspecified; I25.10 Atherosclerotic heart disease of native coronary artery without angina pectoris; F10.90 Alcohol use, unspecified, uncomplicated; Z91.013 Allergy to seafood; Z79.899 Other long term (current) drug therapy; Z79.82 Long term (current) use of aspirin; Z96.649 Presence of unspecified artificial hip joint; Z96.659 Presence of unspecified artificial knee joint; N40.0 Benign prostatic hyperplasia without lower urinary tract symptoms; M19.90 Unspecified osteoarthritis, unspecified site
CPT/HCPCS: 36415; 71045; 80048; 80053; 80061; 83690; 83735; 83880; 84484; 85025; 85347; 85610; 85730; 92943; 93005; 93306; 93459; 99152; 99153; 99285; C1725; C1760; C1769; C1874; C1894; C9607; J1171; J1200; J1644; J2250; J2270; J2405; J3010

== ENCOUNTER 2025-02-09 13:57 | Outpatient (RCR) | payer MEDICARE, BC, SELFPAY | END 2025-05-12 08:00 | disposition home or self-care (01) | LOC: CR 13:57 | PROVIDERS: Visit Provider Internal Medicine | DX: I21.3 ST elevation (STEMI) myocardial infarction of unspecified site (principal); Z95.5 Presence of coronary angioplasty implant and graft | CPT/HCPCS: 93798 ==

== ENCOUNTER 2025-02-12 14:23 | Outpatient (CLI) | payer MEDICARE, BC, SELFPAY ==
[2025-02-12 15:12] LABS: Basophils % 0.4 % (0.1-2.0); Eosinophils # 0.1 K/mm3 (0.0-0.4); Eosinophils % 1.1 % (0.1-12.0); Hematocrit 46.4 % (42.0-52.0); Hemoglobin 15.4 g/dL (14.1-18.0); Lymphocytes # 0.7 K/mm3 (0.7-4.5); Lymphocytes % 15.7 % (10-50); Mean Corpuscular HGB Conc 33.2 g/dL (31.8-35.4); Mean Corpuscular Hemoglobin 31.8 pg (27.0-31.2); Mean Corpuscular Volume 95.9 fl (80-94); Mean Platelet Volume 10.2 fl (7.4-10.4); Monocytes # 0.3 K/mm3 (0.1-1.0); Neutrophils # 3.5 K/mm3 (1.8-7.8); Neutrophils % 75.2 % (37.0-80.0); Nucleated Red Blood Cells # 0 10^3/uL; Nucleated Red Blood Cells % 0 %; Platelet Count 219 K/mm3 (142-424); Red Blood Count 4.84 M/mm3 (4.60-6.20); Red Cell Distribution Width 13.8 % (11.5-17.5); Red Cell Distribution Width-SD 48.6 fL; White Blood Count 4.7 K/mm3 (4.8-10.8)
[2025-02-12 15:46] LABS: Chloride 107 mmol/L (98-107); Potassium 4.1 mmoL/L (3.5-5.1); Sodium 141 mmol/L (136-145)
[2025-02-12 15:49] LABS: Anion Gap 14.1 mEq/L (5-15); Blood Urea Nitrogen 16 mg/dl (9-20); Calcium 9.7 mg/dl (8.4-10.2); Carbon Dioxide 24 mmol/L (22.0-30.0); Estimated Glomerular Filt Rate 65 ml/min (>60); GFR (African American) 79 ML/MIN (>60); Glucose 93 mg/dl (74-100)
== END 2025-02-12 23:59 | disposition home or self-care (01) ==
LOC: LAB 14:24
PROVIDERS: PCP Family Medicine; Visit Provider Internal Medicine
DX: K21.9 Gastro-esophageal reflux disease without esophagitis (principal); I25.10 Atherosclerotic heart disease of native coronary artery without angina pectoris
CPT/HCPCS: 36415; 80048; 85025